=== PATIENT | female | born 1940 | race Two or more races ===

== ENCOUNTER 2016-07-14 19:08 | Inpatient (IN) | payer MEDICARE, OTHER ==
[~2016-07-14] VITALS: Ht 157.5 cm; Wt 58.5 kg
[2016-07-14 19:49] LABS: BASOPHILS # (AUTO) 0.2 /CMM (0.0-0.2); DIFF TOTAL % 100 %; EOSINOPHILS # (AUTO) 0.2 /CMM (0.0-0.7); EOSINOPHILS % (AUTO) 2.4 % (0.0-6.0); HEMATOCRIT 30 % (33-45); HEMOGLOBIN 10.1 g/dL (11.5-14.8); LYMPHOCYTES # (AUTO) 2.1 /CMM (0.8-4.8); LYMPHOCYTES % (AUTO) 22.8 % (20.0-44.0); MEAN CORPUSCULAR HEMOGLOBIN 30 PG (26.0-33.0); MEAN CORPUSCULAR HGB CONC 34 g/dl (31.0-36.0); MEAN CORPUSCULAR VOLUME 87 fL (82-100); MONOCYTES # (AUTO) 0.8 /CMM (0.1-1.30); MONOCYTES % (AUTO) 8.4 % (2.0-12.0); NEUTROPHILS # (AUTO) 5.8 /CMM (1.8-8.9); NEUTROPHILS % (AUTO) 64.4 % (43.0-81.0); PLATELET COUNT (AUTO) 255 /CMM (150-450); WHITE BLOOD COUNT (AUTO) 9.1 K/uL (4.3-11.0)
[2016-07-14 19:57] LABS: CALCIUM, SERUM 7.8 mg/dL (8.5-10.1); CREATININE 1.6 mg/dL (0.6-1.3); POTASSIUM 3.8 mmol/L (3.5-5.1)
[2016-07-14] MEDS ORDERED: IV NS 0.9% 500 ML BAG IV ONE (20:00)
[2016-07-14 20:01] LABS: INR 1.27 (0.87-1.13); PROTHROMBIN TIME 13.3 SECS (9.5-12.7)
[2016-07-14] MEDS ORDERED: IV SET PRIMARY 1 EA INFUS.SET MC ONE (20:07)
[2016-07-14] MEDS ORDERED: IV NS 0.9% 500 ML IV ONE (20:07)
[2016-07-14 21:25] VITALS: BP 143/66
[2016-07-14 22:45] VITALS: BP 143/66
[2016-07-15] MEDS ORDERED: ZINC220C6 PO (00:39)
[2016-07-15] MEDS ORDERED: LIDO30AD10 TP (00:39)
[2016-07-15] MEDS ORDERED: CALC-911 PO (00:39)
[2016-07-15] MEDS ORDERED: METO50TA7 PO (00:39)
[2016-07-15] MEDS ORDERED: DOCU-170 PO (00:39)
[2016-07-15] MEDS ORDERED: DULO20CA PO (00:39)
[2016-07-15] MEDS ORDERED: GLIP10TA11 PO (00:39)
[2016-07-15] MEDS ORDERED: NIFE60TA2 PO (00:39)
[2016-07-15] MEDS ORDERED: APIX5TAB PO (00:39)
[2016-07-15] MEDS ORDERED: MAG355OR18 PO (00:39)
[2016-07-15] MEDS ORDERED: CARV12.52 PO (00:39)
[2016-07-15] MEDS ORDERED: ONDA4TAB8 PO (00:39)
[2016-07-15] MEDS ORDERED: HYDR-3326 PO (00:39)
[2016-07-15] MEDS ORDERED: ALPR0.5T PO (00:39)
[2016-07-15] MEDS ORDERED: VIT D (00:39)
[2016-07-15] MEDS ORDERED: MINE120C3 TP (00:39)
[2016-07-15] MEDS ORDERED: ASCO120G2 MC (00:39)
[2016-07-15] MEDS ORDERED: MIRT15TA3 PO (00:39)
[2016-07-15] MEDS ORDERED: *INS HUMA SQ (00:39)
[2016-07-15] MEDS ORDERED: ATOR80TA PO (00:39)
[2016-07-15] MEDS ORDERED: FURO-145 PO (00:39)
[2016-07-15] MEDS ORDERED: [UNRECOGNIZED DRUG - CODE] IV (00:39)
[2016-07-15] MEDS ORDERED: DIPH-530 PO (00:39)
[2016-07-15] MEDS ORDERED: IPRA0.2S49 NEB (00:39)
[2016-07-15] MEDS ORDERED: OXYC15TA82 PO (00:39)
[2016-07-15] MEDS ORDERED: FLUC100T PO (00:39)
[2016-07-15] MEDS ORDERED: MULT-1168 PO (00:39)
[2016-07-15] MEDS ORDERED: PANT40SU PO (00:39)
[2016-07-15] MEDS ORDERED: PROT946L PO (00:39)
[2016-07-15] MEDS ORDERED: BISA5TAB19 PO (00:39)
[2016-07-15] MEDS ORDERED: FLUC200P12 PO (00:39)
[2016-07-15 06:37] LABS: BASOPHILS % (AUTO) 0.4 % (0.0-2.0); DIFF TOTAL % 100 %; EOSINOPHILS # (AUTO) 0.2 /CMM (0.0-0.7); EOSINOPHILS % (AUTO) 2.3 % (0.0-6.0); HEMATOCRIT 27 % (33-45); HEMOGLOBIN 9.1 g/dL (11.5-14.8); LYMPHOCYTES # (AUTO) 1.8 /CMM (0.8-4.8); MEAN CORPUSCULAR HEMOGLOBIN 30 PG (26.0-33.0); MEAN CORPUSCULAR HGB CONC 34 g/dl (31.0-36.0); MEAN CORPUSCULAR VOLUME 89 fL (82-100); MONOCYTES # (AUTO) 0.7 /CMM (0.1-1.30); MONOCYTES % (AUTO) 8.3 % (2.0-12.0); NEUTROPHILS # (AUTO) 5.3 /CMM (1.8-8.9); PLATELET COUNT (AUTO) 234 /CMM (150-450); RED BLOOD CELL COUNT(AUTO) 3.05 MIL/uL (4.0-5.2)
[2016-07-15 07:02] LABS: INR 1.16 (0.87-1.13); PROTHROMBIN TIME 12.5 SECS (9.5-12.7)
[2016-07-15 07:10] LABS: ALBUMIN 1.9 g/dL (3.4-5.0); BILIRUBIN,TOTAL 0.4 mg/dL (0.2-1.0); CALCIUM, SERUM 7.9 mg/dL (8.5-10.1); CREATININE 1.5 mg/dL (0.6-1.3); POTASSIUM 3.5 mmol/L (3.5-5.1); TOTAL PROTEIN, SERUM 6.9 g/dL (6.4-8.2)
[2016-07-15 07:30] VITALS: BP 137/73
[2016-07-15] MEDS ORDERED: DEXTROSE 50%-WATER 50 ML DISP.SYRIN IV PRN (09:30)
[2016-07-15] MEDS ORDERED: DIPHENHYDRAMINE HCL 12.5 MG/5 ML UDC PO PRN (09:30)
[2016-07-15] MEDS ORDERED: CEFTAZIDIME 1 G VIAL IV SCH (09:30)
[2016-07-15] MEDS ORDERED: ACETAMINOPHEN 650 MG/20.3 ML UDC NG PRN (09:30)
[2016-07-15] MEDS ORDERED: ONDANSETRON HCL/PF 4 MG/2 ML VIAL IV PRN (09:30)
[2016-07-15] MEDS ORDERED: MINERAL OIL/PETROLATUM,WHITE 120 GM JAR TP PRN (09:30)
[2016-07-15] MEDS ORDERED: BISACODYL (5 MG) 5 MG TABLET.DR PO PRN (09:30)
[2016-07-15] MEDS ORDERED: APIXABAN 5 MG TABLET PO PRN (09:30)
[2016-07-15] MEDS ORDERED: MORPHINE SULFATE INJ 2 MG/ML DISP.SYRIN IV PRN (09:30)
[2016-07-15 10:00] VITALS: BP 137/73
[2016-07-15] MEDS ORDERED: diphenhydrAMINE HCL 25 MG CAPSULE PO PRN (10:00)
[2016-07-15] MEDS ORDERED: ALPRAZOLAM 0.5 MG TABLET PO PRN (11:00)
[2016-07-15] MEDS ORDERED: Z GUARD REMEDY 2 OZ OINT TP PRN (11:00)
[2016-07-15] MEDS ORDERED: HYDROGEL DRESSING 90 GM TUBE TP PRN (11:00)
[2016-07-15] MEDS ORDERED: ALPRAZOLAM 0.5 MG TABLET PO SCH (13:00)
[2016-07-15] MEDS: BLOOD SUGAR DIAGNOSTIC 1 EACH STRIP IN SCH ×3 (13:11→22:50)
[2016-07-15] MEDS: CALCIUM CARBONATE 500 MG TAB.CHEW PO SCH (13:17)
[2016-07-15] MEDS: MULTIPLE VIT/MINERALS 1 EA TABLET PO SCH (13:17)
[2016-07-15] MEDS: DOCUSATE SODIUM 100 MG CAPSULE PO SCH ×2 (13:17→17:27)
[2016-07-15] MEDS: FUROSEMIDE 20 MG TABLET PO SCH (13:18)
[2016-07-15] MEDS: glipiZIDE 5 MG TABLET PO SCH ×2 (13:18→17:27)
[2016-07-15] MEDS: ASCORBIC ACID 500 MG TABLET PO SCH ×2 (13:18→17:27)
[2016-07-15] MEDS: FLUCONAZOLE (100 MG) 100 MG TABLET PO SCH (13:18)
[2016-07-15] MEDS: PANTOPRAZOLE 40 MG/PACK PACK PO SCH ×2 (13:18→17:28)
[2016-07-15] MEDS: DULOXETINE HCL 20 MG CAPSULE.DR PO SCH (13:19)
[2016-07-15] MEDS: APIXABAN 5 MG TABLET PO SCH ×2 (13:22→20:59)
[2016-07-15] MEDS: LIDOCAINE 5% (PATCH) 1 EA PATCH TP SCH (13:22)
[2016-07-15] MEDS: NIFEdipine XL 60 MG TAB PO SCH (13:22)
[2016-07-15] MEDS ORDERED: IV SET PRIMARY PUMP SET 1 EA INFUS.SET MC ONE ×2 (13:22→13:33)
[2016-07-15] MEDS: CARVEDILOL 12.5 MG TABLET PO SCH ×2 (13:23→17:00)
[2016-07-15] MEDS: CEFTAZIDIME 2 G in IV D5W 50 ML IV SCH ×2 (13:30→23:21)
[2016-07-15] MEDS ORDERED: HYDROGEL DRESSING 90 GM TUBE TP SCH (13:30)
[2016-07-15] MEDS: HYDROGEL DRESSING 90 GM TUBE TP SCH (13:48)
[2016-07-15 16:00] VITALS: BP 109/69
[2016-07-15 20:00] VITALS: BP 107/60
[2016-07-15] MEDS: ATORVASTATIN 40 MG TABLET PO SCH (20:59)
[2016-07-15] MEDS: MIRTAZAPINE SOLUTAB 15 MG/UDTABLET TAB.RAPDIS PO SCH (21:08)
[2016-07-15] MEDS: INSULIN REGULAR, HUMAN 100 UNIT/ML 3 ML VIAL SQ PRN (22:51)
[2016-07-16] MEDS: IPRATROPIUM NEB FS 0.5 MG/2.5 ML AMPUL.NEB NEB SCH ×5 (00:13→20:24)
[2016-07-16] MEDS: BLOOD SUGAR DIAGNOSTIC 1 EACH STRIP IN SCH ×4 (07:01→21:39)
[2016-07-16 07:02] LABS: BASOPHILS % (AUTO) 0.5 % (0.0-2.0); EOSINOPHILS # (AUTO) 0.2 /CMM (0.0-0.7); EOSINOPHILS % (AUTO) 3.2 % (0.0-6.0); HEMATOCRIT 25 % (33-45); HEMOGLOBIN 8.3 g/dL (11.5-14.8); LYMPHOCYTES # (AUTO) 1.6 /CMM (0.8-4.8); LYMPHOCYTES % (AUTO) 26.2 % (20.0-44.0); MEAN CORPUSCULAR HEMOGLOBIN 30 PG (26.0-33.0); MEAN CORPUSCULAR HGB CONC 33 g/dl (31.0-36.0); MEAN CORPUSCULAR VOLUME 89 fL (82-100); MONOCYTES # (AUTO) 0.5 /CMM (0.1-1.30); MONOCYTES % (AUTO) 8.6 % (2.0-12.0); NEUTROPHILS # (AUTO) 3.7 /CMM (1.8-8.9); NEUTROPHILS % (AUTO) 61.5 % (43.0-81.0); PLATELET COUNT (AUTO) 232 /CMM (150-450); RED BLOOD CELL COUNT(AUTO) 2.81 MIL/uL (4.0-5.2)
[2016-07-16 07:26] LABS: CREATININE 1.3 mg/dL (0.6-1.3); PHOSPHORUS 3.9 mg/dL (2.5-4.9); POTASSIUM 3.6 mmol/L (3.5-5.1)
[2016-07-16] MEDS: CALCIUM CARBONATE 500 MG TAB.CHEW PO SCH (08:40)
[2016-07-16] MEDS: DULOXETINE HCL 20 MG CAPSULE.DR PO SCH (08:40)
[2016-07-16] MEDS: ASPIRIN EC 81 MG TABLET.DR PO SCH (08:41)
[2016-07-16] MEDS: CARVEDILOL 12.5 MG TABLET PO SCH ×2 (08:41→17:00)
[2016-07-16] MEDS: FLUCONAZOLE (100 MG) 100 MG TABLET PO SCH (08:42)
[2016-07-16] MEDS: FUROSEMIDE 20 MG TABLET PO SCH (08:42)
[2016-07-16] MEDS: MULTIPLE VIT/MINERALS 1 EA TABLET PO SCH (08:42)
[2016-07-16] MEDS: METOPROLOL SUCCINATE 50 MG TAB.SR.24H PO SCH (08:43)
[2016-07-16] MEDS: ASCORBIC ACID 500 MG TABLET PO SCH ×2 (08:43→16:56)
[2016-07-16] MEDS: NIFEdipine XL 60 MG TAB PO SCH (08:45)
[2016-07-16] MEDS: APIXABAN 5 MG TABLET PO SCH ×2 (08:45→17:00)
[2016-07-16] MEDS: glipiZIDE 5 MG TABLET PO SCH ×2 (08:47→17:00)
[2016-07-16] MEDS: PANTOPRAZOLE 40 MG/PACK PACK PO SCH ×2 (08:47→17:28)
[2016-07-16] MEDS: DOCUSATE SODIUM 100 MG CAPSULE PO SCH ×2 (08:48→16:56)
[2016-07-16] MEDS: NIFEdipine XL (30MG) 30 MG TAB PO SCH (09:00)
[2016-07-16] MEDS ORDERED: ASPIRIN 81 MG TAB.CHEW PO SCH (09:00)
[2016-07-16] MEDS: HYDROGEL DRESSING 90 GM TUBE TP SCH (09:15)
[2016-07-16] MEDS: LIDOCAINE 5% (PATCH) 1 EA PATCH TP SCH (09:30)
[2016-07-16] MEDS: HYDROCODONE/APAP 5/325MG 1 EACH TABLET PO PRN (16:56)
[2016-07-16] MEDS ORDERED: LACTOBACILLUS RHAMNOSUS GG 1 EACH CAP.SPRINK PO SCH (17:00)
[2016-07-16 20:00] VITALS: BP 105/52
[2016-07-16] MEDS: MIRTAZAPINE SOLUTAB 15 MG/UDTABLET TAB.RAPDIS PO SCH (21:39)
[2016-07-16] MEDS: ATORVASTATIN 40 MG TABLET PO SCH (21:39)
[2016-07-17] MEDS: BLOOD SUGAR DIAGNOSTIC 1 EACH STRIP IN SCH ×4 (06:47→21:13)
[2016-07-17 08:00] VITALS: BP 126/67
[2016-07-17] MEDS: METOPROLOL SUCCINATE 50 MG TAB.SR.24H PO SCH (08:10)
[2016-07-17] MEDS: MULTIPLE VIT/MINERALS 1 EA TABLET PO SCH (08:11)
[2016-07-17] MEDS: DULOXETINE HCL 20 MG CAPSULE.DR PO SCH (08:11)
[2016-07-17] MEDS: CARVEDILOL 12.5 MG TABLET PO SCH ×2 (08:11→17:00)
[2016-07-17] MEDS: ASPIRIN EC 81 MG TABLET.DR PO SCH (08:12)
[2016-07-17] MEDS: APIXABAN 5 MG TABLET PO SCH ×2 (08:13→16:40)
[2016-07-17] MEDS: FUROSEMIDE 20 MG TABLET PO SCH (08:13)
[2016-07-17] MEDS: CALCIUM CARBONATE 500 MG TAB.CHEW PO SCH (08:13)
[2016-07-17] MEDS: NIFEdipine XL (30MG) 30 MG TAB PO SCH (08:13)
[2016-07-17] MEDS: DOCUSATE SODIUM 100 MG CAPSULE PO SCH ×2 (08:13→16:41)
[2016-07-17] MEDS: ASCORBIC ACID 500 MG TABLET PO SCH ×2 (08:13→16:40)
[2016-07-17] MEDS: HYDROGEL DRESSING 90 GM TUBE TP SCH (08:16)
[2016-07-17] MEDS: PANTOPRAZOLE 40 MG/PACK PACK PO SCH ×2 (08:16→16:41)
[2016-07-17] MEDS: glipiZIDE 5 MG TABLET PO SCH ×2 (08:18→16:25)
[2016-07-17] MEDS: LIDOCAINE 5% (PATCH) 1 EA PATCH TP SCH (08:19)
[2016-07-17] MEDS: IPRATROPIUM NEB FS 0.5 MG/2.5 ML AMPUL.NEB NEB SCH ×4 (09:29→19:23)
[2016-07-17] MEDS ORDERED: IOHEXOL-300 100 ML VIAL IV ONE (15:28)
[2016-07-17] MEDS ORDERED: IV NS 0.9% 250 ML IV ONE (15:28)
[2016-07-17 16:00] VITALS: BP 99/48
[2016-07-17 20:00] VITALS: BP_SYST 113; BP_SYST 115; BP_DIAS 63; BP_DIAS 88
[2016-07-17 20:40] VITALS: BP 147/81
[2016-07-17] MEDS: MIRTAZAPINE SOLUTAB 15 MG/UDTABLET TAB.RAPDIS PO SCH (21:13)
[2016-07-17] MEDS: ATORVASTATIN 40 MG TABLET PO SCH (21:13)
[2016-07-17] MEDS: INSULIN REGULAR, HUMAN 100 UNIT/ML 3 ML VIAL SQ PRN (21:14)
[2016-07-18] MEDS: BLOOD SUGAR DIAGNOSTIC 1 EACH STRIP IN SCH ×4 (06:40→21:40)
[2016-07-18 08:00] VITALS: BP 137/67
[2016-07-18] MEDS: ASCORBIC ACID 500 MG TABLET PO SCH ×2 (08:18→16:41)
[2016-07-18] MEDS: MULTIPLE VIT/MINERALS 1 EA TABLET PO SCH (08:18)
[2016-07-18] MEDS: DOCUSATE SODIUM 100 MG CAPSULE PO SCH ×2 (08:19→16:42)
[2016-07-18] MEDS: FUROSEMIDE 20 MG TABLET PO SCH (08:19)
[2016-07-18] MEDS: CALCIUM CARBONATE 500 MG TAB.CHEW PO SCH (08:19)
[2016-07-18] MEDS: glipiZIDE 5 MG TABLET PO SCH ×2 (08:19→16:41)
[2016-07-18] MEDS: CARVEDILOL 12.5 MG TABLET PO SCH ×2 (08:20→16:42)
[2016-07-18] MEDS: DULOXETINE HCL 20 MG CAPSULE.DR PO SCH (08:20)
[2016-07-18] MEDS: ASPIRIN EC 81 MG TABLET.DR PO SCH (08:20)
[2016-07-18] MEDS: PANTOPRAZOLE 40 MG/PACK PACK PO SCH ×2 (08:20→16:41)
[2016-07-18] MEDS: NIFEdipine XL (30MG) 30 MG TAB PO SCH (08:21)
[2016-07-18] MEDS: METOPROLOL SUCCINATE 50 MG TAB.SR.24H PO SCH (08:21)
[2016-07-18] MEDS: HYDROGEL DRESSING 90 GM TUBE TP SCH (08:30)
[2016-07-18] MEDS: LIDOCAINE 5% (PATCH) 1 EA PATCH TP SCH (08:30)
[2016-07-18] MEDS: APIXABAN 5 MG TABLET PO SCH ×2 (08:36→16:42)
[2016-07-18] MEDS: IPRATROPIUM NEB FS 0.5 MG/2.5 ML AMPUL.NEB NEB SCH ×3 (09:15→19:45)
[2016-07-18] MEDS: HYDROCODONE/APAP 5/325MG 1 EACH TABLET PO PRN (11:39)
[2016-07-18 15:48] VITALS: BP 115/66
[2016-07-18 20:00] VITALS: BP 115/88
[2016-07-18] MEDS: ATORVASTATIN 40 MG TABLET PO SCH (21:39)
[2016-07-18] MEDS: MIRTAZAPINE SOLUTAB 15 MG/UDTABLET TAB.RAPDIS PO SCH (21:40)
[2016-07-19] MEDS: BLOOD SUGAR DIAGNOSTIC 1 EACH STRIP IN SCH ×2 (06:40→12:30)
[2016-07-19 06:55] LABS: BASOPHILS % (AUTO) 0.6 % (0.0-2.0); DIFF TOTAL % 100 %; EOSINOPHILS # (AUTO) 0.2 /CMM (0.0-0.7); EOSINOPHILS % (AUTO) 2.7 % (0.0-6.0); HEMATOCRIT 26 % (33-45); HEMOGLOBIN 8.5 g/dL (11.5-14.8); LYMPHOCYTES # (AUTO) 2.1 /CMM (0.8-4.8); LYMPHOCYTES % (AUTO) 28.8 % (20.0-44.0); MEAN CORPUSCULAR HEMOGLOBIN 29 PG (26.0-33.0); MEAN CORPUSCULAR HGB CONC 33 g/dl (31.0-36.0); MEAN CORPUSCULAR VOLUME 88 fL (82-100); MONOCYTES # (AUTO) 0.7 /CMM (0.1-1.30); MONOCYTES % (AUTO) 8.8 % (2.0-12.0); NEUTROPHILS # (AUTO) 4.4 /CMM (1.8-8.9); NEUTROPHILS % (AUTO) 59.1 % (43.0-81.0); PLATELET COUNT (AUTO) 332 /CMM (150-450); WHITE BLOOD COUNT (AUTO) 7.5 K/uL (4.3-11.0)
[2016-07-19 07:36] LABS: CALCIUM, SERUM 8.1 mg/dL (8.5-10.1); CREATININE 1.1 mg/dL (0.6-1.3); PHOSPHORUS 3.5 mg/dL (2.5-4.9); POTASSIUM 4.1 mmol/L (3.5-5.1)
[2016-07-19 08:00] VITALS: BP 150/73
[2016-07-19] MEDS: IPRATROPIUM NEB FS 0.5 MG/2.5 ML AMPUL.NEB NEB SCH ×2 (08:18→12:57)
[2016-07-19] MEDS: FUROSEMIDE 20 MG TABLET PO SCH (08:30)
[2016-07-19] MEDS: ASPIRIN EC 81 MG TABLET.DR PO SCH (08:30)
[2016-07-19] MEDS: CALCIUM CARBONATE 500 MG TAB.CHEW PO SCH (08:30)
[2016-07-19] MEDS: MULTIPLE VIT/MINERALS 1 EA TABLET PO SCH (08:30)
[2016-07-19] MEDS: METOPROLOL SUCCINATE 50 MG TAB.SR.24H PO SCH (08:31)
[2016-07-19] MEDS: DOCUSATE SODIUM 100 MG CAPSULE PO SCH (08:31)
[2016-07-19] MEDS: CARVEDILOL 12.5 MG TABLET PO SCH (08:32)
[2016-07-19] MEDS: glipiZIDE 5 MG TABLET PO SCH (08:32)
[2016-07-19] MEDS: ASCORBIC ACID 500 MG TABLET PO SCH (08:32)
[2016-07-19] MEDS: PANTOPRAZOLE 40 MG/PACK PACK PO SCH (08:33)
[2016-07-19] MEDS: DULOXETINE HCL 20 MG CAPSULE.DR PO SCH (08:33)
[2016-07-19] MEDS: NIFEdipine XL (30MG) 30 MG TAB PO SCH (08:33)
[2016-07-19] MEDS: HYDROGEL DRESSING 90 GM TUBE TP SCH (08:35)
[2016-07-19] MEDS: APIXABAN 5 MG TABLET PO SCH (08:35)
[2016-07-19] MEDS: LIDOCAINE 5% (PATCH) 1 EA PATCH TP SCH (08:35)
[2016-07-19] MEDS ORDERED: SECONDARY IV SET 1 EA INFUS.SET MC ONE (10:39)
[2016-07-19] MEDS ORDERED: IV NS 0.9% 250 ML IV ONE (10:42)
[2016-07-19] MEDS: Magnesium 1GM/D5W 100ML PREMIX 100 ML IV SCH ×2 (10:43→12:05)
[2016-07-19] MEDS ORDERED: IV SET PRIMARY PUMP SET 1 EA INFUS.SET MC ONE (10:43)
[2016-07-19] MEDS: INSULIN REGULAR, HUMAN 100 UNIT/ML 3 ML VIAL SQ PRN (12:32)
[2016-07-19 16:00] VITALS: BP 105/63
== END 2016-07-19 15:50 | DRG 604 ==
LOC: ER 19:10 → MEDSG2 21:16
PROVIDERS: ADMIT Internal Medicine; ATTEND Internal Medicine
DX: S71.101A Unspecified open wound, right thigh, initial encounter (principal); N17.0 Acute kidney failure with tubular necrosis; G93.40 Encephalopathy, unspecified; D68.9 Coagulation defect, unspecified; S21.109A Unspecified open wound of unspecified front wall of thorax without penetration into thoracic cavity, initial encounter; I13.0 Hypertensive heart and chronic kidney disease with heart failure and stage 1 through stage 4 chronic kidney disease, or unspecified chronic kidney disease; E11.22 Type 2 diabetes mellitus with diabetic chronic kidney disease; I25.10 Atherosclerotic heart disease of native coronary artery without angina pectoris; K21.9 Gastro-esophageal reflux disease without esophagitis; N18.9 Chronic kidney disease, unspecified; Z95.1 Presence of aortocoronary bypass graft; E88.09 Other disorders of plasma-protein metabolism, not elsewhere classified; L90.5 Scar conditions and fibrosis of skin; S80.812A Abrasion, left lower leg, initial encounter; S80.811A Abrasion, right lower leg, initial encounter; X58.XXXA Exposure to other specified factors, initial encounter; Y93.9 Activity, unspecified; Y92.89 Other specified places as the place of occurrence of the external cause; Y99.9 Unspecified external cause status; F29 Unspecified psychosis not due to a substance or known physiological condition; Y83.2 Surgical operation with anastomosis, bypass or graft as the cause of abnormal reaction of the patient, or of later complication, without mention of misadventure at the time of the procedure; Y82.9 Unspecified medical devices associated with adverse incidents; Z79.01 Long term (current) use of anticoagulants; I50.9 Heart failure, unspecified; R19.00 Intra-abdominal and pelvic swelling, mass and lump, unspecified site; I87.2 Venous insufficiency (chronic) (peripheral); D63.8 Anemia in other chronic diseases classified elsewhere; L89.819 Pressure ulcer of head, unspecified stage
CPT/HCPCS: 36415; 80048-TC; 80053-TC; 82962-TC; 83735-TC; 84100-TC; 85025-TC; 85610-TC; 85730-TC; 86850-TC; 86901; 87081-TC; 93925-TC; 94799-TC; A4606; A6248; A6253; A6402; A6403; J0713; J1815; J3475; J7040; J7050; J7060; Q0163; Q9967; Z7610

== ENCOUNTER 2017-12-25 11:40 | Inpatient (IN) | payer MEDICARE, OTHER ==
[~2017-12-25] VITALS: Ht 315 cm; Wt 51.7 kg
[~2017-12-25 11:40] MED LIST: ALPR0.5T PO; APIX5TAB PO; ASCO120G2 MC; ATOR80TA PO; BISA5TAB19 PO; CALC-494 PO; CARV12.52 PO; DIPH-530 PO; DOCU100C36 PO; DULO20CA PO; FLUC100T PO; FURO-145 PO; GLIP10TA11 PO; HYDR-3974 PO; IPRA0.2S49 NEB; LIDO30AD10 TP; METO50TA7 PO; MINE120C3 TP; MIRT15TA3 PO; MULT-1168 PO; NIFE60TA2 PO; PANT40SU PO
--- NOTE | 2017-12-25 11:44 | NUR ---
SOY [facility]. PATIENT RECEIVED 2 HRS 40 MIN OF 3HRS OF DIALYSIS WELDING MACHINE OPERATOR SUBMERGED ARC. A/OX 3, BREATHING EVEN AND UNLABORED. NO SOB, NAD, VITALS STABLE. SAFETY AND COMFORT MEASURES IN PLACE. AWAITING MD ORDERS.
--- NOTE | 2017-12-25 11:50 | NUR ---
MD AT BEDSIDE FOR HD CATH EVALUATION. CATHETER WAS MOSTLY PULLED OUT. MD REMOVED CATHETER ENTIRELY AND SITE SECURED. NO BLEEDING NOTED.
--- NOTE | 2017-12-25 11:55 | NUR ---
NEW IV STARTED ON LFA, 20G. BLOOD DRAWN AND SENT TO LAB.
[2017-12-25 12:03] LABS: BASOPHILS % (AUTO) 0.4 % (0.0-2.0); EOSINOPHILS % (AUTO) 0.6 % (0.0-6.0); HEMATOCRIT 40 % (33-45); HEMOGLOBIN 13.4 g/dL (11.5-14.8); LYMPHOCYTES # (AUTO) 1.9 /CMM (0.8-4.8); LYMPHOCYTES % (AUTO) 20.1 % (20.0-44.0); MEAN CORPUSCULAR HEMOGLOBIN 32 PG (26.0-33.0); MEAN CORPUSCULAR HGB CONC 33 g/dl (31.0-36.0); MEAN CORPUSCULAR VOLUME 97 fL (82-100); MONOCYTES # (AUTO) 0.6 /CMM (0.1-1.30); NEUTROPHILS # (AUTO) 6.6 /CMM (1.8-8.9); NEUTROPHILS % (AUTO) 72.9 % (43.0-81.0); PLATELET COUNT (AUTO) 217 /CMM (150-450); RDW COEFFICIENT OF VARIATION 13.6 (11.5-15.0); RED BLOOD CELL COUNT(AUTO) 4.15 MIL/uL (4.0-5.2); WHITE BLOOD COUNT (AUTO) 9.2 K/uL (4.3-11.0)
[2017-12-25 12:11] LABS: CALCIUM, SERUM 9.1 mg/dL (8.5-10.1); CARBON DIOXIDE 24 mmol/L (21-32); CHLORIDE 101 mmol/L (98-107); CREATININE 1.5 mg/dL (0.6-1.3); GLUCOSE 140 mg/dL (74-106); POTASSIUM 4.1 mmol/L (3.5-5.1); SODIUM SERUM 134 mmol/L (136-145); UREA NITROGEN, BLOOD 36 mg/dL (7-18)
[2017-12-25 12:15] LABS: INR 0.91 (0.85-1.15)
--- NOTE | 2017-12-25 12:40 | NUR ---
DR.LEE MONTALVO
[2017-12-25] MEDS ORDERED: HYDR-552 PO (12:48)
[2017-12-25] MEDS ORDERED: ISOS60TA4 PO (12:48)
[2017-12-25] MEDS ORDERED: ACID1TAB12 PO (12:48)
[2017-12-25] MEDS ORDERED: METO2.5T2 PO (12:48)
[2017-12-25] MEDS ORDERED: CHOL200026 PO (12:48)
[2017-12-25] MEDS ORDERED: HYDR-4076 PO (12:48)
[2017-12-25] MEDS ORDERED: IPRA0.2S9 IH (12:48)
[2017-12-25] MEDS ORDERED: AMIN30LI4 PO (12:48)
[2017-12-25] MEDS ORDERED: INSU100V11 SQ (12:48)
[2017-12-25] MEDS ORDERED: ATOR10TA PO (12:48)
[2017-12-25] MEDS ORDERED: FOLI0.8T23 PO (12:48)
[2017-12-25] MEDS ORDERED: ASCO250T7 PO (12:48)
[2017-12-25] MEDS ORDERED: BLOO-668 IN (12:48)
[2017-12-25] MEDS ORDERED: NITR0.4T48 SL (12:48)
[2017-12-25] MEDS ORDERED: ASPI-1169 PO (12:48)
[2017-12-25] MEDS ORDERED: BENA20TA2 PO (12:48)
[2017-12-25] MEDS ORDERED: HEPA50008 SQ (12:48)
[2017-12-25] MEDS ORDERED: CARV6.252 PO (12:48)
--- NOTE | 2017-12-25 13:07 | NUR ---
MS 116-1 FOR DIALYSIS CATH. MALFUNCTION, DR.SORA HENRY ADMITTING
--- NOTE | 2017-12-25 13:11 | NUR ---
REPORT GIVEN TO DEONDRE FORMAN FOR MARBIN UPON ADMISSION.
--- NOTE | 2017-12-25 13:20 | NUR ---
PATIENT TRANSPORTED TO [facility] VIA STRETCHER. RNDEONDRE TO PROVIDE MARBIN.
--- NOTE | 2017-12-25 13:30 | NUR ---
RN M/S INITIAL NOTES: RECEIVED PT FROM ER C/C HD CATHETER DISLODGEMENT. HD CATHETER REMOVED IN ER, DRESSING IN PLACE, NO BLEEDING NOTED. SAFELY TRANSFERRED FROM [facility] TO BED. PT DENIES ANY PAIN OR DISCOMFORT AT THIS TIME. ON ROOM AIR, NO SOB OR RESPIRATORY DISTRESS NOTED. SKIN ASSESSMENT DONE. SKIN INTACT BUT NOTED WITH MULTIPLE OLD BURN SITES. ORDERS RECEIVED PER DR MILTON HENRY, CARRIED OUT. LUNCH TRAY ORDERED FROM [facility], [facility] 60GM RENAL DIET. PT ASSISTED TO THE RESTROOM WITHOUT COMPLICATIONS. NO BM NOTED. PLAN OF CARE DISCUSSED WITH PT, BED IN LOW LOCKED POSITION, CALL LIGHT WITHIN REACH. FAMILY AWARE OF PT'S LOCATION AND SITUATION, WILL VISIT LATER. WILL CONTINUE TO MONITOR PT.
--- NOTE | 2017-12-25 13:45 | NUR ---
V/S UPON ADMISSION: 98.0, 72 (HR), RR 19, O2 SATURATION 99%, BP 141/76, PAIN 0/10
[2017-12-25] MEDS ORDERED: INSULIN ASPART/LISPRO 100 UNIT/ML CARTRIDGE SQ PRN (14:30)
[2017-12-25] MEDS ORDERED: CALCIUM CARBONATE 500 MG TAB.CHEW PO PRN (14:30)
[2017-12-25] MEDS ORDERED: IPRATROPIUM NEB FS 0.5 MG/2.5 ML AMPUL.NEB IH PRN (14:30)
[2017-12-25] MEDS ORDERED: HYDROCODONE/APAP 5/325MG 1 EACH TABLET PO PRN (14:30)
[2017-12-25] MEDS ORDERED: NITROGLYCERIN 0.4 MG/TAB BOTTLE SL PRN (14:30)
[2017-12-25] MEDS ORDERED: DEXTROSE 50%-WATER 50 ML DISP.SYRIN IV PRN (14:30)
[2017-12-25] MEDS ORDERED: BISACODYL (5 MG) 5 MG TABLET.DR PO PRN (14:30)
--- NOTE | 2017-12-25 15:30 | NUR ---
RN M/S NOTES: RECEIVED CALL FROM DR ERVIN WITH ORDERS FOR HD TUNNELED CATHETER PLACEMENT TO BE DONE TOMORROW MORNING AT 0900. NPO AFTER MIDNIGHT TONIGHT, CONSENTS FOR CATHETER PLACEMENT, AND AM LABS (CBC, BPM, PT/PTT). ORDERS CARRIED OUT. WILL HAVE FAMILY SIGN CONSENTS UPON ARRIVAL. PT AWARE.
--- NOTE | 2017-12-25 16:00 | NUR ---
RN M/S NOTES: FAMILY AT BEDSIDE, DAUGHTER AND HER . EDUCATED ABOUT TUNNELING HD CATHETER INSERTION TOMORROW, CONSENT RECEIVED FROM THEM BOTH. FORMS SIGNED AND PLACED IN CHART. PT AWARE.
[2017-12-25] MEDS: DOCUSATE SODIUM 100 MG CAPSULE PO SCH (16:44)
[2017-12-25] MEDS: ACIDOPHILUS/BULGARICUS 1 EACH TAB.CHEW PO SCH (16:44)
[2017-12-25] MEDS: PROSOURCE / PROSTAT (PYXIS) 30 ML UDC PO SCH (16:45)
[2017-12-25] MEDS: CARVEDILOL 6.25 MG TABLET PO SCH (16:45)
[2017-12-25] MEDS: BLOOD SUGAR DIAGNOSTIC 1 EACH STRIP IN SCH ×2 (17:05→21:44)
[2017-12-25] MEDS ORDERED: BLOOD SUGAR DIAGNOSTIC 1 EACH STRIP IN SCH (17:30)
--- NOTE | 2017-12-25 18:30 | NUR ---
RN M/S END NOTES: PT IN BED SLEEPING, EASY TO AROUSE. ON ROOM AIR, SATURATING WELL WITH NO C/O SOB AT THIS TIME. PT DENIES PAIN OR DISCOMFORT. AWARE OF PLAN FOR HD CATHETER PLACEMENT AND NPO AFTER MIDNIGHT. ALL DUE MEDS GIVEN PO WITHOUT ANY COMPLICATION, LUNCH AND DINNER CONSUMED. BED IN LOW LOCKED POSITION, CALL LIGHT WITHIN REACH, BED ALARM ON FOR SAFETY. WILL ENDORSE TO PM SHIFT FOR CONTINUITY OF CARE.
--- NOTE | 2017-12-25 20:10 | NUR ---
RN NOTES RECEIVED PATIENT AWAKE IN BED WATCHING TV WITH NO RESPIRATORY DISTRESS OR SHORTNESS OF BREATH. BREATHING EVEN AND UNLABORED. ROOM AIR WELL TOLERATED. ALERT AND ORIENTED X 4. NO COMPLAINT OF PAIN OF THIS TIME. AMBULATORY. ABLE TO COMMUNICATE NEEDS. KEPT CLEAN AND DRY. WILL CONTINUE TO MONITOR.
[2017-12-25] MEDS: HEPARIN SODIUM, PORCINE 5000 UNITS/1 ML VIAL SQ SCH (21:39)
[2017-12-25] MEDS: hydrALAZINE HCL 25 MG TABLET PO SCH (21:43)
[2017-12-25] MEDS: INSULIN ASPART/LISPRO 100 UNIT/ML CARTRIDGE SQ PRN (21:44)
[2017-12-25] MEDS ORDERED: ATORVASTATIN 10 MG TABLET PO SCH (22:00)
[2017-12-25 22:42] VITALS: BP 125/63
[2017-12-26 04:00] VITALS: BP 143/70
[2017-12-26] MEDS: hydrALAZINE HCL 25 MG TABLET PO SCH ×2 (05:00→12:38)
[2017-12-26 06:34] LABS: BASOPHILS % (AUTO) 0.5 % (0.0-2.0); EOSINOPHILS % (AUTO) 1.2 % (0.0-6.0); HEMATOCRIT 37 % (33-45); HEMOGLOBIN 11.9 g/dL (11.5-14.8); LYMPHOCYTES # (AUTO) 2.1 /CMM (0.8-4.8); LYMPHOCYTES % (AUTO) 33.8 % (20.0-44.0); MEAN CORPUSCULAR HEMOGLOBIN 32 PG (26.0-33.0); MEAN CORPUSCULAR HGB CONC 32 g/dl (31.0-36.0); MEAN CORPUSCULAR VOLUME 99 fL (82-100); MONOCYTES # (AUTO) 0.4 /CMM (0.1-1.30); MONOCYTES % (AUTO) 7.3 % (2.0-12.0); NEUTROPHILS # (AUTO) 3.5 /CMM (1.8-8.9); NEUTROPHILS % (AUTO) 57.2 % (43.0-81.0); PLATELET COUNT (AUTO) 189 /CMM (150-450); RED BLOOD CELL COUNT(AUTO) 3.76 MIL/uL (4.0-5.2); WHITE BLOOD COUNT (AUTO) 6.1 K/uL (4.3-11.0)
[2017-12-26 06:49] LABS: CALCIUM, SERUM 8.8 mg/dL (8.5-10.1); CARBON DIOXIDE 22 mmol/L (21-32); CHLORIDE 101 mmol/L (98-107); GLUCOSE 116 mg/dL (74-106); POTASSIUM 4.4 mmol/L (3.5-5.1); SODIUM SERUM 135 mmol/L (136-145); UREA NITROGEN, BLOOD 64 mg/dL (7-18)
--- NOTE | 2017-12-26 06:51 | NUR ---
RN NOTES NO SIGNIFICANT CHANGE OF CONDITION. IN BED SLEEPING COMFORTABLY. NO DISTRESS OR SHORTNESS OF BREATH. BREATHING EVEN AND UNLABORED. NO PHYSICAL MANIFESTATION OF PAIN OR DISCOMFORT. VITAL SIGNS WNL. NPO MIDNIGHT. FOR INSERTION OF TUNNELLED HD CATHETER. WILL ENDORSE TO AM SHIFT FOR CONTINUITY OF CARE
[2017-12-26] MEDS: BLOOD SUGAR DIAGNOSTIC 1 EACH STRIP IN SCH ×2 (07:00→11:51)
[2017-12-26] MEDS: INSULIN ASPART/LISPRO 100 UNIT/ML CARTRIDGE SQ PRN (07:00)
[2017-12-26 07:09] LABS: INR 0.93 (0.87-1.13)
[2017-12-26] MEDS ORDERED: PANTOPRAZOLE 40 MG/PACK PACK PO SCH (07:30)
--- NOTE | 2017-12-26 07:34 | NUR ---
MS RN NOTES: RECEIVED PT ON BED ALERT AND AWAKE, VERBALLY RESPONSIVE. NO ACUTE DISTRESS NOTED. NO COMPLAINTS OF PAIN OR DISCOMFORT AT THIS TIME. IV ON LFA G20 INTACT AND PATENT. PRE OP CHECK LIST DONE. KEPT CLEAN, DRY AND COMFORTABLE. SAFETY AND FALL PRECAUTIONS OBSERVED AND MAINTAINED. CALL LIGHT WITHIN REACH. WILL CONTINUE TO MONITOR PT.
[2017-12-26 08:00] VITALS: BP 158/71
[2017-12-26] MEDS ORDERED: HEPARIN SODIUM, PORCINE 1,000 UNIT/ML VIAL ONE (08:14)
[2017-12-26] MEDS ORDERED: IOHEXOL 0 ML IV ONE (08:14)
[2017-12-26] MEDS ORDERED: LIDOCAINE 2% 50 ML MDV IJ ONE (08:14)
[2017-12-26] MEDS ORDERED: ANESTHESIA TRAY IN PYXIS 1 EA TRAY MC ONE (08:15)
--- NOTE | 2017-12-26 08:45 | NUR ---
MS RN NOTES: PT WAS TRANSPORTED TO OR FOR SURGERY. IN STABLE CONDITION. NO ACUTE DISTRESS NOTED. NO SOB. DENIES PAIN.
[2017-12-26] MEDS ORDERED: FENTANYL PF 100MCG/2ML AMPUL ONE (08:58)
[2017-12-26] MEDS: DOCUSATE SODIUM 100 MG CAPSULE PO SCH (09:00)
[2017-12-26] MEDS ORDERED: ISOSORBIDE MONONITRATE 20 MG TABLET PO SCH (09:00)
[2017-12-26] MEDS ORDERED: BENAZEPRIL HCL 20 MG TABLET PO SCH (09:00)
[2017-12-26] MEDS: ACIDOPHILUS/BULGARICUS 1 EACH TAB.CHEW PO SCH ×2 (09:00→12:37)
[2017-12-26] MEDS: CARVEDILOL 6.25 MG TABLET PO SCH (09:00)
[2017-12-26] MEDS ORDERED: ASCORBIC ACID 500 MG TABLET PO SCH (09:00)
[2017-12-26] MEDS ORDERED: METOLAZONE 2.5 MG TABLET PO SCH (09:00)
[2017-12-26] MEDS ORDERED: VIT B CMPLX 3/FA/VIT C/BIOTIN 1 TAB TABLET PO SCH (09:00)
[2017-12-26] MEDS ORDERED: ASPIRIN 81 MG TAB.CHEW PO SCH (09:00)
[2017-12-26] MEDS ORDERED: CHOLECALCIFEROL 1,000 UNIT TABLET (VIT D3) PO SCH (09:00)
[2017-12-26] MEDS: PROSOURCE / PROSTAT (PYXIS) 30 ML UDC PO SCH ×2 (09:00→12:40)
[2017-12-26] MEDS: HEPARIN SODIUM, PORCINE 5000 UNITS/1 ML VIAL SQ SCH (09:00)
[2017-12-26] MEDS ORDERED: HYDROCODONE/APAP 5/325MG 1 EACH TABLET PO SCH (09:00)
--- NOTE | 2017-12-26 10:16 | NUR ---
MS RN NOTES: PATIENT CAME BACK FROM SURGERY. VITAL SIGNS BP: 156/70, HR 61, TEMP 97.6, RR 20, O2 SAT 98% RA. NO ACUTE DISTRESS NOTED. DENIES PAIN AT THIS TIME. NO SOB. IV ON RIGHT HAND G22 INTACT AND PATENT. NEW ORDERS CARRIED OUT AND DONE. SAFETY ADN FALL PRECAUTIONS OBSERVED AND MAINTAINED. WILL CONTINUE TO MONITOR PT.
[2017-12-26 12:00] VITALS: BP 156/70
[2017-12-26 12:38] VITALS: BP 156/70
--- NOTE | 2017-12-26 15:39 | NUR ---
MS RN NOTES: PATIENT WAS DISCHARGED HOME, PICKED UP BY HER SON. IN STABLE CONDITION. NO ACUTE DISTRESS NOTED. NO COMPLAINTS OF PAIN OR DISCOMFORT. IV ON RIGHT HAND WAS REMOVED. PICTURES TAKEN AND PLACED ON CHART. DISCHARGE INSTRUCTIONS AND HEALTH EDUCATION PROVIDED. BELONGINGS LIST DONE.
== END 2017-12-26 15:10 | disposition home or self-care (01) | DRG 314 ==
LOC: ER 11:41 → MEDSG1 13:24
PROVIDERS: ADMIT Internal Medicine; ATTEND Internal Medicine
PROC: B513ZZA Fluoroscopy of Right Jugular Veins, Guidance (ICD-10-PCS; 2017-12-26)
PROC: 05HM33Z Insertion of Infusion Device into Right Internal Jugular Vein, Percutaneous Approach (ICD-10-PCS; principal; 2017-12-26 09:00)
DX: T82.41XA Breakdown (mechanical) of vascular dialysis catheter, initial encounter (principal); N18.6 End stage renal disease; G93.40 Encephalopathy, unspecified; I12.0 Hypertensive chronic kidney disease with stage 5 chronic kidney disease or end stage renal disease; Y83.9 Surgical procedure, unspecified as the cause of abnormal reaction of the patient, or of later complication, without mention of misadventure at the time of the procedure; Y92.89 Other specified places as the place of occurrence of the external cause; I25.10 Atherosclerotic heart disease of native coronary artery without angina pectoris; Z95.1 Presence of aortocoronary bypass graft; Z99.2 Dependence on renal dialysis; E11.22 Type 2 diabetes mellitus with diabetic chronic kidney disease; E78.5 Hyperlipidemia, unspecified; D63.8 Anemia in other chronic diseases classified elsewhere
CPT/HCPCS: 36415; 71045-TC; 80048-TC; 82962-TC; 85025-TC; 85730-TC; 87081-TC; 90935-TC; A4606; J1644; J1815; J3010; J3490; Q9967; Z7610

== ENCOUNTER 2020-01-25 09:18 | Inpatient (IN) | payer MEDICARE, OTHER ==
[~2020-01-25] VITALS: Ht 154.9 cm; Wt 64.4 kg
[~2020-01-25 09:18] MED LIST changes: +ACID1TAB12 PO; -ALPR0.5T PO; +AMIN30LI4 PO; -APIX5TAB PO; -ASCO120G2 MC; +ASCO250T7 PO; +ASPI-1169 PO; +ATOR10TA PO; -ATOR80TA PO; +BENA20TA9 PO; +BLOO-668 IN; -CARV12.52 PO; +CARV6.252 PO; +CHOL200026 PO; -DIPH-530 PO; -DULO20CA PO; -FLUC100T PO; +FOLI0.8T23 PO; -FURO-145 PO; -GLIP10TA11 PO; +HEPA50008 SQ; +HYDR-4076 PO; +HYDR-4384 PO; +INSU100V11 SQ; -IPRA0.2S49 NEB; +IPRA0.2S9 IH; +ISOS60TA4 PO; -LIDO30AD10 TP; +METO2.5T2 PO; -METO50TA7 PO; -MINE120C3 TP; -MIRT15TA3 PO; -MULT-1168 PO; -NIFE60TA2 PO; +NITR0.4T48 SL
--- NOTE | 2020-01-25 09:20 | NUR ---
PT BIBRA 860 FROM US RENAL C/O R ARM PAIN AND SWELLING. PT IS AAOX3, NOT IN RESPIRATORY DISTRESS, HOOKED TO QUANTITATIVE ANALYST DEVELOPER, KEPT RESTED AND COMFORTABLE. WILL CONTINUE TO MONITOR.
[2020-01-25] MEDS ORDERED: VANCOMYCIN 1 GM in IV D5W 250 ML IV ONE (09:30)
[2020-01-25] MEDS ORDERED: PIPERACILLIN /TAZOBACTAM 3.375 G in IV D5W 50 ML IV ONE (09:30)
--- NOTE | 2020-01-25 09:35 | NUR ---
MOVE SHEET SUBMITTED TO ADMITTING AND CALLED FOR TELE BED.
--- NOTE | 2020-01-25 09:35 | NUR ---
SEEN AND EXAMINED BY .
--- NOTE | 2020-01-25 09:35 | NUR ---
IV LINE ESTABLISHED.
--- NOTE | 2020-01-25 09:37 | NUR ---
CALLED PHARMACY FOR ANTIBIOTIC.
--- NOTE | 2020-01-25 09:39 | NUR ---
ER PHLEB AT BEDSIDE FOR BLOOD DRAW.
--- NOTE | 2020-01-25 09:42 | NUR ---
COVID SWAB OBTAINED AND SENT TO LAB.
[2020-01-25] MEDS ORDERED: MIRCERA IVP (09:55)
[2020-01-25] MEDS ORDERED: zemplar IV (09:55)
[2020-01-25] MEDS ORDERED: ONDA4TAB5 PO (09:55)
[2020-01-25 09:56] LABS: BASOPHILS % (AUTO) 0.5 % (0.0-2.0); EOSINOPHILS % (AUTO) 1.8 % (0.0-6.0); HEMATOCRIT 36 % (33-45); HEMOGLOBIN 11.6 g/dL (11.5-14.8); LYMPHOCYTES # (AUTO) 1.4 /CMM (0.8-4.8); LYMPHOCYTES % (AUTO) 21.9 % (20.0-44.0); MEAN CORPUSCULAR HGB CONC 32 g/dl (31.0-36.0); MEAN CORPUSCULAR VOLUME 99 fL (82-100); MONOCYTES # (AUTO) 0.6 /CMM (0.1-1.30); MONOCYTES % (AUTO) 9.1 % (2.0-12.0); NEUTROPHILS # (AUTO) 4.1 /CMM (1.8-8.9); NEUTROPHILS % (AUTO) 66.7 % (43.0-81.0); PLATELET COUNT (AUTO) 200 /CMM (150-450); RED BLOOD CELL COUNT(AUTO) 3.66 MIL/uL (4.0-5.2); WHITE BLOOD COUNT (AUTO) 6.2 K/uL (4.3-11.0)
[2020-01-25] MEDS ORDERED: GLIP5TAB13 PO (09:58)
[2020-01-25] MEDS ORDERED: CLOP75TA15 PO (09:58)
[2020-01-25] MEDS ORDERED: ATOR80TA PO (09:58)
--- NOTE | 2020-01-25 09:58 | NUR ---
VETERINARY TECHNOLOGIST AT BEDSIDE FOR XRAY.
[2020-01-25] MEDS ORDERED: CHOL400T11 PO (10:00)
[2020-01-25 10:07] LABS: CALCIUM, SERUM 8.6 mg/dL (8.5-10.1); CARBON DIOXIDE 29 mmol/L (21-32); CHLORIDE 102 mmol/L (98-107); CREATININE 3.2 mg/dL (0.6-1.3); GLUCOSE 75 mg/dL (74-106); POTASSIUM 4.1 mmol/L (3.5-5.1); SODIUM SERUM 138 mmol/L (136-145); UREA NITROGEN, BLOOD 43 mg/dL (7-18)
[2020-01-25 10:12] LABS: ALANINE AMINOTRANSFERASE 16 U/L (12-78); ALBUMIN 3.7 g/dL (3.4-5.0); ALKALINE PHOSPHATASE 117 U/L (46-116); ASPARTATE AMINOTRANSFERASE 15 U/L (15-37); BILIRUBIN,DIRECT 0.1 mg/dL (0.0-0.2); BILIRUBIN,TOTAL 0.6 mg/dL (0.2-1.0); TOTAL PROTEIN, SERUM 8.2 g/dL (6.4-8.2)
--- NOTE | 2020-01-25 10:14 | NUR ---
alok nurse notes: pt brian speaking only, unable to recall her meds, called olivia (son), spoke to his and verified some of her meds that she is taking and updated her list of meds and some of her meds lists from dialysis center also updated.
--- NOTE | 2020-01-25 10:18 | NUR ---
CALLED DR. LEZAMA [phone] [facility]
[2020-01-25] MEDS ORDERED: MAGNESIUM HYDROXIDE 30 ML UDC PO PRN (11:30)
[2020-01-25] MEDS ORDERED: ACETAMINOPHEN 325 MG TABLET PO PRN (11:30)
[2020-01-25] MEDS ORDERED: ONDANSETRON HCL/PF 4 MG/2 ML VIAL IVP PRN (11:30)
[2020-01-25] MEDS ORDERED: Z GUARD REMEDY 2 OZ OINT TP PRN (11:30)
[2020-01-25] MEDS ORDERED: MAG HYDROX/AL HYDROX/SIMETH 30 ML UDC PO PRN (11:30)
[2020-01-25] MEDS ORDERED: HYDROCODONE/APAP 5/325MG 1 EACH TABLET PO PRN (11:30)
--- NOTE | 2020-01-25 12:13 | NUR ---
FOLLOW UP MAIN LAB FOR COVID ANTIGEN RESULT.
--- NOTE | 2020-01-25 13:06 | NUR ---
COVID RESULTS: NEGATIVE
--- NOTE | 2020-01-25 13:09 | NUR ---
ROOM 200
--- NOTE | 2020-01-25 13:32 | NUR ---
REPORT GIVEN TO RUBY OF MS UNIT
--- NOTE | 2020-01-25 13:41 | NUR ---
BELONGINGS LIST DONE
--- NOTE | 2020-01-25 13:46 | NUR ---
MRSA DONE AND SENT TO LAB
[2020-01-25] MEDS ORDERED: hydrALAZINE HCL IV 20 MG VIAL IV PRN (14:00)
--- NOTE | 2020-01-25 14:05 | NUR ---
MS POLITICAL SCIENCE FACULTY MEMBER NOTE PATIENT ARRIVED FROM ER BY SARWAT AND TRANSFERRED TO BED. PATIENT IN NO ACUTE DISTRESS. NO SOB NOTED. PATIENT BREATHING IS EVEN AND UNLABORED. PATIENT ON ROOM AIR SATURATING >95% SPO2. PATIENT BED ALARM IS ON. PATIENT SAFETY PRECAUTIONS IN PLACE. PATIENT BED IS LOCKED AND IN LOWEST POSITION. CALL LIGHT WITHIN REACH. DR. LEZAMA MADE AWARE OF PATIENT ARRIVAL. Addendum: 01/25/20 at 1425 by RUBY SAM RN MS POLITICAL SCIENCE FACULTY MEMBER NOTE PATIENT ARRIVED FROM ER BY [facility]WAT AND TRANSFERRED TO BED. PATIENT IN NO ACUTE DISTRESS. NO SOB NOTED. PATIENT BREATHING IS EVEN AND UNLABORED. PATIENT ON ROOM AIR SATURATING >95% SPO2. PATIENT BED ALARM IS ON. PATIENT SAFETY PRECAUTIONS IN PLACE. PATIENT BED IS LOCKED AND IN LOWEST POSITION. CALL LIGHT WITHIN REACH. WILL CONTINUE TO MONITOR. DR. LEZAMA MADE AWARE OF PATIENT ARRIVAL.
[2020-01-25 14:10] VITALS: BP 154/73
--- NOTE | 2020-01-25 14:30 | NUR ---
MS RN NOTE SPOKE WITH DR. LEZAMA. PER MD ORDER FOR DVT PUMPS TO BE PLACED.
[2020-01-25] MEDS ORDERED: FEE PK DOSING 1 MIN EA MC ONE (15:06)
[2020-01-25] MEDS ORDERED: VANCOMYCIN 500 MG in IV D5W 100 ML IV PRN (15:30)
[2020-01-25] MEDS ORDERED: DEXTROSE 50%-WATER 50 ML DISP.SYRIN IV PRN (16:30)
--- NOTE | 2020-01-25 16:45 | NUR ---
MS RN NOTE SPOKE WITH DR. LEZAMA AND INFORMED HIM OF PATIENT HISTORY WITH DIABETES AND VTE SCORE OF 4. PER DR. LEZAMA ORDERS FOR HEPARIN 5000 SQ Q12 BID AND MILD SLIDING SCALE ACHS.
[2020-01-25] MEDS: BLOOD SUGAR DIAGNOSTIC 1 EACH STRIP IN SCH ×2 (16:59→21:04)
[2020-01-25] MEDS: glipiZIDE 5 MG TABLET PO SCH (16:59)
--- NOTE | 2020-01-25 17:05 | NUR ---
MS RN NOTE PATIENT BLOOD SUGAR 68. NO INSULIN COVERAGE NEEDED PER PROTOCOL. SNACKS PROVIDED WITH BLOOD SUGAR OF 68.
--- NOTE | 2020-01-25 17:06 | NUR ---
MS RN NOTE PATIENT BLOOD PRESSURE 161/75, HR 94. HYDRALAZINE PRN GIVEN ORDERED.
[2020-01-25 17:59] VITALS: BP 161/72
--- NOTE | 2020-01-25 18:30 | NUR ---
MS RN NOTE SPOKE WITH DR. LEZAMA ABOUT PATIENT BEING ON PLAVIX AND HEPARIN. PER MD ORDERS TO KEEP PATIENT ON BOTH PLAVIX AND HEPARIN.
--- NOTE | 2020-01-25 18:40 | NUR ---
MS RN CLOSING NOTE PATIENT IN BED RESTING COMFORTABLY. PATIENT IN NO ACUTE DISTRESS. NO SOB NOTED. PATIENT BREATHING IS EVEN AND UNLABORED. PATIENT ON ROOM AIR SATURATING >95% SPO2. PATIENT BLOOD SUGAR 126 AND PATIENT ATE AND TOLERATED DINNER WELL. PATIENT KEPT CLEAN, DRY, AND COMFORTABLE THROUGHOUT SHIFT. PATIENT BED ALARM IS ON. PATIENT SAFETY PRECAUTIONS IN PLACE. PATIENT BED IS LOCKED AND IN LOWEST POSITION. CALL LIGHT WITHIN REACH. WILL ENDORSE CARE TO PM SHIFT FOR MARBIN.
--- NOTE | 2020-01-25 19:30 | NUR ---
MS/RN OPENING NOTES: RECEIVED PATIENT IN BED RESTING COMFORTABLY. PATIENT IN NO ACUTE DISTRESS. NO SOB NOTED. PATIENT BREATHING IS EVEN AND UNLABORED. PATIENT ON ROOM AIR SATURATING >95% SPO2. PATIENT IS SITTING IN BED. PATIENT BED ALARM IS ON. PATIENT SAFETY PRECAUTIONS IN PLACE. PATIENT BED IS LOCKED AND IN LOWEST POSITION. CALL LIGHT WITHIN REACH. WILL MONITOR ACCORDINGLY.
--- NOTE | 2020-01-25 19:35 | NUR ---
MS/RN NOTES: CALLED PT'S SON MARGOT TO OBTAIN CONSENT FOR HEMODIALYSIS. WITNESSED WITH ANOTHER RN, RUBY. WILL CONTINUE TO MONITOR.
[2020-01-25 20:00] VITALS: BP 117/70
[2020-01-25] MEDS: CARVEDILOL 6.25 MG TABLET PO SCH (20:30)
[2020-01-25] MEDS: HEPARIN SODIUM, PORCINE 5000 UNITS/1 ML VIAL SQ SCH (20:30)
[2020-01-25] MEDS: INSULIN REGULAR, HUMAN 100 UNIT/ML 3 ML VIAL SQ PRN (21:06)
[2020-01-25] MEDS ORDERED: ZOLPIDEM TARTRATE 5 MG TABLET PO PRN (22:00)
--- NOTE | 2020-01-25 22:00 | NUR ---
MS/RN NOTES: ACCUCHECK FOR HS IS 125. NO INSULIN COVERAGE NEEDED PER SLIDING SCALE. WILL CONTINUE TO MONITOR ACCORDINGLY.
--- NOTE | 2020-01-26 00:10 | NUR ---
MS/RN NOTES: RECEIVED VANCO RANDOM RESULT 9. TAX ACCOUNTING ASSISTANT PHARMACIST UNAVAILABLE. NOTIFIED SERVICE DISMANTLER. STATES HE WILL LOOK FOR THE LIST BECAUSE [facility] DOESN'T DOSE ANTIBIOTIC.
--- NOTE | 2020-01-26 00:41 | NUR ---
MS/RN NOTES: LEFT CHERYL, PHARMACIST A VOICEMAIL ORDERED BY NURSING ZIPPER MEASURER ELIAZAR. STILL WAITING FOR ORDERS. WILL F/U.
--- NOTE | 2020-01-26 00:51 | NUR ---
MS/RN NOTES: PER NURSING NETWORK SUPPORT, UNABLE TO FIND THE RIDE ATTENDANT PHARMACISTS, AND TO GIVE THE VANCO 500MG DOSE ORDERED AND F/U WITH THE PHARMACIST IN THE MORNING.
[2020-01-26] MEDS ORDERED: VANCOMYCIN 500 MG VIAL ONE (00:59)
--- NOTE | 2020-01-26 01:56 | NUR ---
MS/RN NOTES: VANCOMYCIN 500MG PRN HD ADMINISTERED ORDERED. NURSING GREENKEEPER AWARE. CHARGE NURSE AWARE. WILL F/U WITH THE PHARMACIST IN MORNING.
[2020-01-26] MEDS: BLOOD SUGAR DIAGNOSTIC 1 EACH STRIP IN SCH ×4 (06:30→21:19)
--- NOTE | 2020-01-26 06:30 | NUR ---
MS/RN NOTES: ACCUCHECK FOR AC IS 76. NO INSULIN COVERAGE NEEDED PER SLIDING SCALE. GAVE PATIENT APPLE JUICE. TOLERATED WELL. WILL CONTINUE TO MONITOR ACCORDINGLY.
[2020-01-26] MEDS: INSULIN REGULAR, HUMAN 100 UNIT/ML 3 ML VIAL SQ PRN ×2 (06:31→17:55)
[2020-01-26 06:46] LABS: CALCIUM, SERUM 8.8 mg/dL (8.5-10.1); CARBON DIOXIDE 28 mmol/L (21-32); CHLORIDE 102 mmol/L (98-107); CREATININE 2.2 mg/dL (0.6-1.3); GLUCOSE 71 mg/dL (74-106); MAGNESIUM 2.3 mg/dL (1.8-2.4); SODIUM SERUM 138 mmol/L (136-145); UREA NITROGEN, BLOOD 21 mg/dL (7-18)
--- NOTE | 2020-01-26 06:49 | NUR ---
MS/RN CLOSING NOTES: PATIENT IN BED RESTING COMFORTABLY. REMAINS A/OX3. IN NO ACUTE DISTRESS. NO SOB NOTED. PATIENT BREATHING IS EVEN AND UNLABORED. SATURATING >95% SPO2 ON ROOM AIR. PATIENT KEPT CLEAN, DRY, AND COMFORTABLE THROUGHOUT SHIFT. S/P HD WITH TOTAL OUTPUT OF 2.5L. VSS. PATIENT BED ALARM IS ON. PATIENT SAFETY PRECAUTIONS IN PLACE. PATIENT BED IS LOCKED AND IN LOWEST POSITION. CALL LIGHT WITHIN REACH. WILL ENDORSE CARE TO AM SHIFT FOR MARBIN.
[2020-01-26 06:50] LABS: BASOPHILS % (AUTO) 0.6 % (0.0-2.0); EOSINOPHILS % (AUTO) 2.3 % (0.0-6.0); HEMATOCRIT 35 % (33-45); HEMOGLOBIN 11.3 g/dL (11.5-14.8); MEAN CORPUSCULAR HGB CONC 32 g/dl (31.0-36.0); MEAN CORPUSCULAR VOLUME 97 fL (82-100); MONOCYTES # (AUTO) 0.4 /CMM (0.1-1.30); MONOCYTES % (AUTO) 10.3 % (2.0-12.0); NEUTROPHILS # (AUTO) 2.7 /CMM (1.8-8.9); NEUTROPHILS % (AUTO) 62.8 % (43.0-81.0); PLATELET COUNT (AUTO) 187 /CMM (150-450); RED BLOOD CELL COUNT(AUTO) 3.58 MIL/uL (4.0-5.2); WHITE BLOOD COUNT (AUTO) 4.4 K/uL (4.3-11.0)
[2020-01-26 06:55] LABS: CHOLESTEROL 263 mg/dL (<200); HDL CHOLESTEROL 71 mg/dL (40-60); LDL 162 mg/dL (0-99); TRIGLYCERIDES 119 mg/dL (30-150)
--- NOTE | 2020-01-26 07:10 | NUR ---
MS RN NOTES PATIENT IN BED ALERT ORIENTED X 2-3. NO ACUTE DISTRESS NOTED. BREATHING UNLABORED. IV ACCESS PATENT AND INTACT, NO REDNESS, NO SWELLING NOTED. SAFETY MEASURES IN PLACE. CALL LIGHT WITHIN REACH. WILL CONTINUE TO MONITOR ACCORDINGLY.
[2020-01-26] MEDS: PANTOPRAZOLE 40 MG/PACK PACK PO SCH (07:34)
[2020-01-26 08:00] VITALS: BP 141/84
[2020-01-26] MEDS: ISOSORBIDE MONONITRATE (30MG) 30 MG TAB.SR.24H PO SCH (09:15)
[2020-01-26] MEDS: CLOPIDOGREL BISULFATE 75 MG TABLET PO SCH (09:15)
[2020-01-26] MEDS: glipiZIDE 5 MG TABLET PO SCH ×2 (09:15→17:55)
[2020-01-26] MEDS: ATORVASTATIN 40 MG TABLET PO SCH (09:15)
[2020-01-26] MEDS: HEPARIN SODIUM, PORCINE 5000 UNITS/1 ML VIAL SQ SCH ×2 (09:15→21:14)
[2020-01-26] MEDS: ASPIRIN 81 MG TAB.CHEW PO SCH (09:15)
[2020-01-26] MEDS: CARVEDILOL 6.25 MG TABLET PO SCH ×2 (09:16→21:13)
[2020-01-26] MEDS: CHOLECALCIFEROL (VITAMIN D 3) 400 UNIT TABLET PO SCH (09:17)
[2020-01-26] MEDS ORDERED: VANCOMYCIN 500 MG in IV D5W 100 ML IV ONE (13:00)
[2020-01-26 17:33] VITALS: BP 126/59
--- NOTE | 2020-01-26 18:42 | NUR ---
MS RN NOTES PATIENT IN BED ALERT ORIENTED X 2-3. NO ACUTE DISTRESS NOTED. BREATHING UNLABORED. DENIED PAIN AT THIS TIME. IV ACCESS PATENT AND INTACT, NO REDNESS, NO SWELLING NOTED. NEEDS ATTENDED AND ANTICIPATED. KEPT COMFORTABLE. HEAD OF BED ELEVATED. SAFETY MEASURES IN PLACE. CALL LIGHT WITHIN REACH. WILL ENDORSE TO NIGHT FOR CONTINUITY OF CARE
--- NOTE | 2020-01-26 19:45 | NUR ---
MS RN OPENING NOTES PATIENT RECEIVED RESTING IN BED A/O X 2-3. STABLE ON RA WITH BREATHING EVEN AND UNLABORED, NO SOB NOTED. NO SIGNS OF ACUTE DISTRESS. NO COMPLAINTS OF PAIN AND DISCOMFORT. IV LOCATED ON R FA #20 AND KAYCEE FISTULA NOTED AND IN PLACE. SAFETY PRECAUTIONS IN PLACE WITH BED IN LOWEST POSITION, CALL LIGHT WITHIN REACH, BREAKS ON, SIDE RAILS UP. WILL CONTINUE TO MONITOR THROUGHOUT THE NIGHT.
[2020-01-26 20:00] VITALS: BP 141/74
[2020-01-26 20:17] VITALS: BP 141/74
[2020-01-27] MEDS: BLOOD SUGAR DIAGNOSTIC 1 EACH STRIP IN SCH ×2 (06:50→11:59)
--- NOTE | 2020-01-27 07:01 | NUR ---
MS RN CLOSING NOTES PATIENT RESTING IN BED A/O X 2-3. STABLE ON RA WITH BREATHING EVEN AND UNLABORED, NO SOB NOTED. NO SIGNS OF ACUTE DISTRESS. NO COMPLAINTS OF PAIN AND DISCOMFORT. IV LOCATED ON R FA #20 AND KAYCEE FISTULA NOTED AND IN PLACE. SAFETY PRECAUTIONS IN PLACE WITH BED IN LOWEST POSITION, CALL LIGHT WITHIN REACH, BREAKS ON, SIDE RAILS UP. ALL NEEDS ATTENDED TO. PATIENT KEPT CLEAN AND DRY. WILL ENDORSE TO ONCOMING SHIFT ABOUT MARBIN.
[2020-01-27 07:21] LABS: CALCIUM, SERUM 8.8 mg/dL (8.5-10.1); CARBON DIOXIDE 30 mmol/L (21-32); CHLORIDE 101 mmol/L (98-107); CREATININE 3.2 mg/dL (0.6-1.3); GLUCOSE 75 mg/dL (74-106); POTASSIUM 4.8 mmol/L (3.5-5.1); SODIUM SERUM 137 mmol/L (136-145); UREA NITROGEN, BLOOD 35 mg/dL (7-18)
--- NOTE | 2020-01-27 07:25 | NUR ---
MS RN NOTES RECEIVED PT IN BED, AWAKE, A/OX2-3, PITCAIRN ISLANDER SPEAKING BUT ABLE TO UNDERSTAND AND SPEAK [place]. PT TOLERATING RA, WITH NO ACUTE RESPIRATORY DISTRESS NOTED. PT DENIES ANY PAIN OR DISCOMFORT AT THIS TIME. PT DENIES ANY QUESTIONS OR CONCERN. PIV TO RFA G20, FLUSHED WITH NS, INTACT AND OPERATIONAL. LEFT ARM SWOLLEN/CELLULITIS NOTED, PER NIGHT NURSE NEGATIVE FOR DVT. KAYCEE HD ACCESS PRESENT WELL. PT KEPT COMFORTABLE IN BED. CALL LIGHT KEPT WITHIN REACH. PT'S BED IN LOWEST, LOCKED, POSITION WITH SRX3. WILL CONTINUE PLAN OF CARE.
[2020-01-27 07:31] LABS: BASOPHILS % (AUTO) 0.3 % (0.0-2.0); EOSINOPHILS % (AUTO) 1.4 % (0.0-6.0); HEMATOCRIT 37 % (33-45); HEMOGLOBIN 11.6 g/dL (11.5-14.8); LYMPHOCYTES # (AUTO) 1.2 /CMM (0.8-4.8); LYMPHOCYTES % (AUTO) 20.2 % (20.0-44.0); MEAN CORPUSCULAR HGB CONC 32 g/dl (31.0-36.0); MEAN CORPUSCULAR VOLUME 98 fL (82-100); MONOCYTES # (AUTO) 0.4 /CMM (0.1-1.30); NEUTROPHILS # (AUTO) 4.3 /CMM (1.8-8.9); NEUTROPHILS % (AUTO) 71.1 % (43.0-81.0); PLATELET COUNT (AUTO) 187 /CMM (150-450); RED BLOOD CELL COUNT(AUTO) 3.73 MIL/uL (4.0-5.2)
[2020-01-27] MEDS: PANTOPRAZOLE 40 MG/PACK PACK PO SCH (07:53)
[2020-01-27 08:00] VITALS: BP 150/70
[2020-01-27] MEDS: ISOSORBIDE MONONITRATE (30MG) 30 MG TAB.SR.24H PO SCH (08:04)
[2020-01-27] MEDS: ATORVASTATIN 40 MG TABLET PO SCH (08:04)
[2020-01-27] MEDS: CLOPIDOGREL BISULFATE 75 MG TABLET PO SCH (08:04)
[2020-01-27] MEDS: glipiZIDE 5 MG TABLET PO SCH (08:04)
[2020-01-27 08:05] VITALS: BP 150/70
[2020-01-27] MEDS: CARVEDILOL 6.25 MG TABLET PO SCH (08:05)
[2020-01-27] MEDS: ASPIRIN 81 MG TAB.CHEW PO SCH (08:05)
[2020-01-27] MEDS: HEPARIN SODIUM, PORCINE 5000 UNITS/1 ML VIAL SQ SCH (08:06)
[2020-01-27] MEDS: CHOLECALCIFEROL (VITAMIN D 3) 400 UNIT TABLET PO SCH (08:07)
--- NOTE | 2020-01-27 09:10 | NUR ---
MS RN NOTES INVESTIGATION LIEUTENANT/BILL AT THE UNIT TO DIALYZE PT.
--- NOTE | 2020-01-27 15:24 | NUR ---
MS ROLLOFF TRUCK DRIVER NOTES PT AWAKE, A/O X2-3, TOLERATING RA WITH NO ACUTE RESPIRATORY DISTRESS NOTED. PT DENIES ANY PAIN OR DISCOMFORT AT THE TIME OF DISCHARGE. PIV TO RFA G20, REMOVED AND APPLIED DRY DRESSING. SKIN ASSESSED, PICTURES TAKEN AND FILED IN THE CHART. NO PRESCRIPTIONS GIVEN. DISCHARGE INSTRUCTIONS AND INVENTORY LIST REVIEWED AND SIGNED BY PT, ALSO NOTIFIED LANDON/RIZWAN WHO ACCOMPANIED PT TO HOME. ALL NEEDS AND CARE ATTENDED. VITALS STABLE. PT ESCORTED TO THE LOBBY VIA WHEELCHAIR. PT LEFT THE HOSPITAL AT 1515, HOSPITALIST/DT AND DR LEZAMA AWARE OF DISCHARGE.
== END 2020-01-27 15:15 | disposition home or self-care (01) | DRG 602 ==
LOC: ER 09:19 → TELE2 13:37 → MEDSG2 14:06
PROVIDERS: ADMIT Internal Medicine; ATTEND Internal Medicine
PROC: 5A1D70Z Performance of Urinary Filtration, Intermittent, Less than 6 Hours Per Day (ICD-10-PCS; principal; 2020-01-25)
DX: L03.114 Cellulitis of left upper limb (principal); N18.6 End stage renal disease; G93.41 Metabolic encephalopathy; I12.0 Hypertensive chronic kidney disease with stage 5 chronic kidney disease or end stage renal disease; D68.69 Other thrombophilia; I87.1 Compression of vein; N25.81 Secondary hyperparathyroidism of renal origin; E78.5 Hyperlipidemia, unspecified; E11.22 Type 2 diabetes mellitus with diabetic chronic kidney disease; Z99.2 Dependence on renal dialysis; D63.1 Anemia in chronic kidney disease; E03.9 Hypothyroidism, unspecified; I25.10 Atherosclerotic heart disease of native coronary artery without angina pectoris; K21.9 Gastro-esophageal reflux disease without esophagitis; Z79.82 Long term (current) use of aspirin; Z95.1 Presence of aortocoronary bypass graft; D50.9 Iron deficiency anemia, unspecified; L02.414 Cutaneous abscess of left upper limb; Z79.02 Long term (current) use of antithrombotics/antiplatelets; Z79.4 Long term (current) use of insulin
CPT/HCPCS: 36415; 71045-TC; 80048-TC; 80061-TC; 80076-TC; 80202-TC; 82962-TC; 83605-TC; 83735-TC; 84100-TC; 85025-TC; 85730-TC; 86706; 87040-TC; 87081-TC; 87340; 90935-TC; 93971-TC; G0378; J0360; J1644; J1815; J2543; J3370; J7060

== ENCOUNTER 2020-08-20 08:12 | Inpatient (IN) | payer MEDICARE, OTHER ==
[~2020-08-20] VITALS: Ht 152.4 cm; Wt 63.8 kg
[~2020-08-20 08:12] MED LIST changes: +ACET-2605 PO; -ACID1TAB12 PO; -AMIN30LI4 PO; -ASCO250T7 PO; -ASPI-1169 PO; +ASPI-1420 PO; -ATOR10TA PO; +ATOR40TA PO; -BENA20TA9 PO; -BISA5TAB19 PO; -BLOO-668 IN; -CALC-494 PO; -CHOL200026 PO; +CHOL400T PO; +CLOP75TA15 PO; +DIPH25CA51 PO; +DOCU-141 PO; -DOCU100C36 PO; -FOLI0.8T23 PO; +FURO-144 PO; +GLIP5TAB13 PO; -HEPA50008 SQ; -HYDR-3974 PO; -HYDR-4076 PO; -HYDR-4384 PO; -INSU100V11 SQ; -IPRA0.2S9 IH; -ISOS60TA4 PO; +ISOS60TA72 PO; -METO2.5T2 PO; +NITR0.4T48 PO; -NITR0.4T48 SL; -PANT40SU PO
--- NOTE | 2020-08-20 08:35 | NUR ---
BIB ems frm dialysis for mid sternal chest pain with shortness of breath, 02 @2LPM VIA NC. connected to the monitor and pulse ox. kept comfortable, will continue to monitor accordingly.
--- NOTE | 2020-08-20 08:37 | NUR ---
MOVE SHEET SUBMITTED AND CALLED FOR TELE BED.
[2020-08-20 08:51] LABS: BASOPHILS # (AUTO) 0.1 /CMM (0.0-0.2); BASOPHILS % (AUTO) 1.1 % (0.0-2.0); EOSINOPHILS % (AUTO) 0.7 % (0.0-6.0); HEMATOCRIT 32 % (33-45); HEMOGLOBIN 10.2 g/dL (11.5-14.8); LYMPHOCYTES # (AUTO) 0.9 /CMM (0.8-4.8); LYMPHOCYTES % (AUTO) 8.5 % (20.0-44.0); MEAN CORPUSCULAR HGB CONC 32 g/dl (31.0-36.0); MEAN CORPUSCULAR VOLUME 103 fL (82-100); MONOCYTES # (AUTO) 0.5 /CMM (0.1-1.30); MONOCYTES % (AUTO) 5.1 % (2.0-12.0); NEUTROPHILS # (AUTO) 8.7 /CMM (1.8-8.9); NEUTROPHILS % (AUTO) 84.6 % (43.0-81.0); PLATELET COUNT (AUTO) 245 /CMM (150-450); RED BLOOD CELL COUNT(AUTO) 3.12 MIL/uL (4.0-5.2); WHITE BLOOD COUNT (AUTO) 10.2 K/uL (4.3-11.0)
[2020-08-20 09:16] LABS: CALCIUM, SERUM 8.8 mg/dL (8.5-10.1); CARBON DIOXIDE 25 mmol/L (21-32); CHLORIDE 99 mmol/L (98-107); CREATININE 4.2 mg/dL (0.6-1.3); GLUCOSE 169 mg/dL (74-106); POTASSIUM 4.9 mmol/L (3.5-5.1); SODIUM SERUM 139 mmol/L (136-145); UREA NITROGEN, BLOOD 69 mg/dL (7-18)
[2020-08-20] MEDS ORDERED: MORPHINE SULFATE INJ 4 MG/ML DISP.SYRIN ONE (09:41)
[2020-08-20] MEDS ORDERED: ONDANSETRON HCL/PF 4 MG/2 ML VIAL ONE (09:41)
[2020-08-20] MEDS ORDERED: MORPHINE SULFATE INJ 2 MG/ML DISP.SYRIN IV ONE (10:00)
[2020-08-20] MEDS ORDERED: ONDANSETRON HCL/PF 4 MG/2 ML VIAL IVP ONE (10:00)
[2020-08-20] MEDS ORDERED: CHOLECALCIFEROL (VITAMIN D 3) 400 UNIT TABLET PO SCH (11:30)
[2020-08-20] MEDS ORDERED: DEXTROSE 50%-WATER 50 ML DISP.SYRIN IV PRN (11:30)
[2020-08-20] MEDS ORDERED: NITROGLYCERIN 0.4 MG/TAB BOTTLE SL PRN (11:30)
[2020-08-20] MEDS ORDERED: diphenhydrAMINE HCL 25 MG CAPSULE PO PRN (11:30)
[2020-08-20] MEDS: BLOOD SUGAR DIAGNOSTIC 1 EACH STRIP IN SCH ×3 (12:00→22:28)
--- NOTE | 2020-08-20 12:52 | NUR ---
GOT BED 309-1
--- NOTE | 2020-08-20 13:21 | NUR ---
report given to Tej DANG for shanti
[2020-08-20 13:29] LABS: THYROID STIMULATING HORMONE 1.019 uIU/mL (0.358-3.74)
--- NOTE | 2020-08-20 13:40 | NUR ---
tele principal secretary: admission admitted this 80 year old female pt from [facility] with dx: chest pain, a/ox4; brian speaking only. spoke to grandson over the phone for translation. oriented to room and surroundings. tele sr=69. vss, afebrile. no c/o pain or any discomfort. pt for hd tx and obtained consent. called christianne (hd nurse) and made aware, stated, "selene will do it." pt made aware. instructed to call for assistance. will continue to monitor.
[2020-08-20 13:45] VITALS: BP 126/60
--- NOTE | 2020-08-20 13:48 | NUR ---
wheeled patient via gurney accompanied by RN and emt in no distress. Nurse at bedside to assume care.
--- NOTE | 2020-08-20 15:40 | NUR ---
tele intelligence chief: notes selene (hd nurse) here and preparing pt for hd tx.
[2020-08-20 16:00] VITALS: BP 126/71
[2020-08-20] MEDS ORDERED: CARVEDILOL 6.25 MG TABLET PO SCH (17:00)
[2020-08-20 17:40] VITALS: BP 126/60
[2020-08-20] MEDS: ASPIRIN EC 81 MG TABLET.DR PO SCH (17:48)
[2020-08-20] MEDS: glipiZIDE 5 MG TABLET PO SCH (17:49)
--- NOTE | 2020-08-20 18:30 | NUR ---
tele bed maker: notes taken to bathroom, voided, and taken back to bed safely. instructed to call for assistance. will continue to monitor.
--- NOTE | 2020-08-20 19:00 | NUR ---
m/s assistant news director: notes report given to melly (rn) for continuity of care.
--- NOTE | 2020-08-20 19:44 | NUR ---
RN NOTES RECEIVED PT ALERT AND ORIENTED X4 NO RESPIRATORY DISTRESS NOTED AT THIS TIME OR REPORTED. NO PAIN OR DISCOMFORT VISIBLE OR REPORTED. R HAND IV ACCESS 20G L AV SHUNT PRESENT. ALL NURSING NEEDS MET AT THIS TIME. CALL LIGHT WITHIN REACH. SAFETY PRECAUTIONS FOLLOWED. WILL CONTINUE TO MONITOR.
[2020-08-20 20:42] VITALS: BP 122/52
[2020-08-20] MEDS: INSULIN REGULAR, HUMAN 100 UNIT/ML 3 ML VIAL SQ PRN (22:34)
[2020-08-21 00:37] VITALS: BP 93/51
[2020-08-21 03:59] VITALS: BP 105/51
[2020-08-21] MEDS: BLOOD SUGAR DIAGNOSTIC 1 EACH STRIP IN SCH ×4 (06:24→21:19)
--- NOTE | 2020-08-21 06:31 | NUR ---
RN NOTES RECEIVED PT ALERT AND ORIENTED X4 NO RESPIRATORY DISTRESS NOTED AT THIS TIME OR REPORTED. NO PAIN OR DISCOMFORT VISIBLE OR REPORTED. R HAND IV ACCESS 20G L AV SHUNT PRESENT. ALL NURSING NEEDS MET AT THIS TIME. CALL LIGHT WITHIN REACH. SAFETY PRECAUTIONS FOLLOWED. WILL ENDORSE CARE TO DAY SHIFT
[2020-08-21 06:34] LABS: BASOPHILS % (AUTO) 0.6 % (0.0-2.0); EOSINOPHILS % (AUTO) 0.6 % (0.0-6.0); HEMATOCRIT 27 % (33-45); HEMOGLOBIN 8.5 g/dL (11.5-14.8); LYMPHOCYTES # (AUTO) 1.1 /CMM (0.8-4.8); LYMPHOCYTES % (AUTO) 14.3 % (20.0-44.0); MEAN CORPUSCULAR HGB CONC 32 g/dl (31.0-36.0); MEAN CORPUSCULAR VOLUME 102 fL (82-100); MONOCYTES # (AUTO) 0.7 /CMM (0.1-1.30); MONOCYTES % (AUTO) 9.5 % (2.0-12.0); NEUTROPHILS # (AUTO) 5.7 /CMM (1.8-8.9); PLATELET COUNT (AUTO) 209 /CMM (150-450); RED BLOOD CELL COUNT(AUTO) 2.62 MIL/uL (4.0-5.2); WHITE BLOOD COUNT (AUTO) 7.6 K/uL (4.3-11.0)
[2020-08-21 07:33] LABS: ALANINE AMINOTRANSFERASE 51 U/L (12-78); ALBUMIN 3.7 g/dL (3.4-5.0); ALKALINE PHOSPHATASE 108 U/L (46-116); ASPARTATE AMINOTRANSFERASE 42 U/L (15-37); BILIRUBIN,TOTAL 1.5 mg/dL (0.2-1.0); CALCIUM, SERUM 8.5 mg/dL (8.5-10.1); CARBON DIOXIDE 32 mmol/L (21-32); CHLORIDE 98 mmol/L (98-107); CREATININE 3.5 mg/dL (0.6-1.3); GLUCOSE 69 mg/dL (74-106); MAGNESIUM 2.4 mg/dL (1.8-2.4); PHOSPHORUS 5.1 mg/dL (2.5-4.9); POTASSIUM 4.4 mmol/L (3.5-5.1); SODIUM SERUM 139 mmol/L (136-145); TOTAL PROTEIN, SERUM 7.9 g/dL (6.4-8.2); UREA NITROGEN, BLOOD 50 mg/dL (7-18)
--- NOTE | 2020-08-21 07:51 | NUR ---
WOUND CARE CONSULT: REVIEWED CHART, NURSING DOCUMENTATION AND PHOTOS WHICH INDICATE STERNAL WOUND AND DISCOLORED AREAS TO BUTTOCKS AND EXTREMITIES, PRESENT ON ADMISSION. DR SHELBY NOTIFIED OF SURGICAL CONSULT REQUEST. RECOMMENDATIONS MADE FOR SKIN PROTECTION. DISCUSSED WITH NURSING STAFF. MD IN AGREEMENT WITH PLAN OF CARE.
[2020-08-21 08:00] VITALS: BP 113/55
[2020-08-21] MEDS ORDERED: Z GUARD REMEDY 2 OZ OINT TP PRN (08:00)
--- NOTE | 2020-08-21 08:00 | NUR ---
RN Opening note Received patient AO x 4 Turkmen speaking, patient does no appears pain or distress, skin is warm to touch keep clean/dry, intact IV site and left upper arm AV shunt. Kept elevated HOB for ensure airway and aspiration precaution also lower bed position with bed alarm on for safety. Patient noticed troponin 0.802, received order CTA by Dr. Carlson. Call light within reach, will continue to monitor.
[2020-08-21] MEDS: ISOSORBIDE MONONITRATE (30MG) 30 MG TAB.SR.24H PO SCH (09:00)
[2020-08-21] MEDS: CARVEDILOL 6.25 MG TABLET PO SCH ×2 (09:00→21:18)
[2020-08-21] MEDS: glipiZIDE 5 MG TABLET PO SCH ×2 (09:00→11:48)
[2020-08-21] MEDS: DOCUSATE SODIUM 100 MG CAPSULE PO SCH (09:25)
[2020-08-21] MEDS: CLOPIDOGREL BISULFATE 75 MG TABLET PO SCH (09:25)
[2020-08-21] MEDS: ASPIRIN EC 81 MG TABLET.DR PO SCH (09:25)
[2020-08-21] MEDS: ATORVASTATIN 40 MG TABLET PO SCH (09:25)
[2020-08-21] MEDS: FUROSEMIDE 40 MG TABLET PO SCH (09:25)
[2020-08-21] MEDS: Z GUARD REMEDY 2 OZ OINT TP SCH (09:32)
--- NOTE | 2020-08-21 09:33 | NUR ---
Patient BS 69mg/dl this morning, will hold Glucophage at this time.
[2020-08-21] MEDS ORDERED: NITROGLYCERIN 0.4 MG/TAB BOTTLE ONE (10:35)
[2020-08-21] MEDS ORDERED: IOHEXOL-350 100 ML VIAL IV ONE (10:35)
[2020-08-21] MEDS ORDERED: METOPROLOL TARTRATE INJ 5 MG/5 ML AMPUL ONE (10:36)
[2020-08-21] MEDS ORDERED: IV NS 0.9% 250 ML IV ONE (10:36)
[2020-08-21] MEDS ORDERED: CT SWABBABLE VALVE TRANS SET 1 EA INFUS.SET MC ONE (10:36)
[2020-08-21] MEDS ORDERED: NITROGLYCERIN 0.4 MG/TAB BOTTLE SL ONE (11:00)
[2020-08-21] MEDS ORDERED: METOPROLOL TARTRATE 50 MG TABLET PO PRN (11:00)
[2020-08-21 11:46] VITALS: BP 126/48
--- NOTE | 2020-08-21 11:49 | NUR ---
Patient had IV contrast, will hold Glipizide at 1700.
[2020-08-21 16:00] VITALS: BP 111/45
[2020-08-21] MEDS: ACETAMINOPHEN 325 MG TABLET PO PRN (17:05)
--- NOTE | 2020-08-21 18:00 | NUR ---
RN Closing note Patient in bed resting c/o back pain and given Tylenol, stable vital sign. Skin is warm to touch kept clean.dry, intact IV site and AV shunt on left arm, HD done today 1.1 L out put. Respiratory even and unlabored on room air. Keep elevated HOB for ensure airway and aspiration precaution and lowest bed position for safety. Call light within reach, will endorse maintenance technician 2nd shift.
[2020-08-21 20:00] VITALS: BP_SYST 125; BP_DIAS 58; BP_DIAS 60
--- NOTE | 2020-08-21 20:00 | NUR ---
RN NOTES RECEIVED PT. SLEEPING BUT AROUSABLE, A/OX4, LATVIAN SPEAKING, SR ON TELE MONITOR HR-77, DENIES PAIN NO SOB, CALL LIGHT WITHIN REACH, SIDERAILSUPX2, CONTINUE TO MONITOR
[2020-08-22] VITALS (7 sets, daily range): BP systolic 105–136; BP diastolic 52–66
--- NOTE | 2020-08-22 06:23 | NUR ---
RN NOTES AWAKE, MORNING CARE RENDERED, NO PAIN NOTED, CALL LIGHT WITHIN REACH,SIDERAILSUPX2, PT. NEEDS ATTENDED
[2020-08-22 06:41] LABS: BASOPHILS % (AUTO) 0.5 % (0.0-2.0); EOSINOPHILS % (AUTO) 1.1 % (0.0-6.0); HEMATOCRIT 25 % (33-45); HEMOGLOBIN 7.9 g/dL (11.5-14.8); LYMPHOCYTES # (AUTO) 0.9 /CMM (0.8-4.8); MEAN CORPUSCULAR HGB CONC 32 g/dl (31.0-36.0); MEAN CORPUSCULAR VOLUME 104 fL (82-100); MONOCYTES # (AUTO) 0.5 /CMM (0.1-1.30); MONOCYTES % (AUTO) 7.3 % (2.0-12.0); NEUTROPHILS # (AUTO) 5.1 /CMM (1.8-8.9); NEUTROPHILS % (AUTO) 78.1 % (43.0-81.0); PLATELET COUNT (AUTO) 167 /CMM (150-450); RED BLOOD CELL COUNT(AUTO) 2.43 MIL/uL (4.0-5.2); WHITE BLOOD COUNT (AUTO) 6.6 K/uL (4.3-11.0)
[2020-08-22] MEDS: BLOOD SUGAR DIAGNOSTIC 1 EACH STRIP IN SCH ×4 (06:44→21:57)
[2020-08-22 06:47] LABS: CALCIUM, SERUM 8.1 mg/dL (8.5-10.1); CARBON DIOXIDE 32 mmol/L (21-32); CHLORIDE 95 mmol/L (98-107); CREATININE 3.5 mg/dL (0.6-1.3); GLUCOSE 99 mg/dL (74-106); MAGNESIUM 2.2 mg/dL (1.8-2.4); POTASSIUM 4.2 mmol/L (3.5-5.1); SODIUM SERUM 137 mmol/L (136-145); UREA NITROGEN, BLOOD 43 mg/dL (7-18)
--- NOTE | 2020-08-22 07:48 | NUR ---
RN Opening note Received patient AO x 3-4, Mohawk speaking, patient denies pain or distress, skin is warm to touch keep clean/dry, intact IV site and left upper arm AV shunt. shelter monitor shows HR 68. Kept elevated HOB for ensure airway and aspiration precaution also lower bed position with bed alarm on for safety. Call light within reach, will continue to monitor.
[2020-08-22] MEDS: DOCUSATE SODIUM 100 MG CAPSULE PO SCH (08:24)
[2020-08-22] MEDS: ASPIRIN EC 81 MG TABLET.DR PO SCH (08:25)
[2020-08-22] MEDS: CLOPIDOGREL BISULFATE 75 MG TABLET PO SCH (08:25)
[2020-08-22] MEDS: CARVEDILOL 6.25 MG TABLET PO SCH ×2 (08:25→21:28)
[2020-08-22] MEDS: FUROSEMIDE 40 MG TABLET PO SCH (08:25)
[2020-08-22] MEDS: LOSARTAN POTASSIUM 50 MG TABLET PO SCH (08:25)
[2020-08-22] MEDS: ATORVASTATIN 40 MG TABLET PO SCH (08:25)
[2020-08-22] MEDS: glipiZIDE 5 MG TABLET PO SCH ×2 (08:25→17:00)
[2020-08-22] MEDS: ISOSORBIDE MONONITRATE (30MG) 30 MG TAB.SR.24H PO SCH (08:26)
[2020-08-22] MEDS: Z GUARD REMEDY 2 OZ OINT TP SCH (08:27)
--- NOTE | 2020-08-22 08:29 | NUR ---
Patient's BP 105/52 HR 69 and BS 90mg/dl does not eat enough breakfast also, will hold BP meds and glipizide.
--- NOTE | 2020-08-22 17:16 | NUR ---
Patient blood sugar is low and low appetite, will hold glipizide.
--- NOTE | 2020-08-22 18:37 | NUR ---
RN Closing note Patient in bed resting comfortably. Skin is warm to touch kept clean.dry, intact IV site and AV shunt on left arm. Respiratory even and unlabored on room air. Keep elevated HOB for ensure airway and aspiration precaution and lowest bed position for safety. stable vital sign. Call light within reach, will endorse production honing machine operator.
--- NOTE | 2020-08-22 19:35 | NUR ---
MACHINE FANCY STITCHER NOTES RECEIVED ON BED SLEEPING,AROUSABLE TO VERBAL STIMULI,BREATHING NON LABORED,O2 IN USED 2L/NC TO KEEP O2 SAT ABOVE 90%,DIALYSIS PATIENT,ANURIC.WITH LEFT AV SHUNT FOR HD TREATMENT,RIGHT HAND SALINE LOCK FOR MEDS INTACT AND PATENT.NOTED DRESSING ON STERNAL AREA,INTACT AND DRY.CALL LIGHT IN REACH,NEEDS ANTICIPATED.
--- NOTE | 2020-08-22 19:35 | NUR ---
GROCERY CARRIER NOTES SR-70 ON TELE MONITOR.
--- NOTE | 2020-08-22 22:00 | NUR ---
BIRTH CERTIFICATE CLERK NOTES ACCU-CHECK BLOOD SUGAR CHECK 101,NO INSULIN COVERAGE.
[2020-08-23] VITALS: BP 121/52
[2020-08-23 03:54] VITALS: BP 111/60
[2020-08-23 03:55] VITALS: BP 111/60
[2020-08-23] MEDS: BLOOD SUGAR DIAGNOSTIC 1 EACH STRIP IN SCH ×4 (05:33→22:13)
[2020-08-23 06:17] LABS: CALCIUM, SERUM 8.1 mg/dL (8.5-10.1); CARBON DIOXIDE 30 mmol/L (21-32); CHLORIDE 94 mmol/L (98-107); GLUCOSE 94 mg/dL (74-106); MAGNESIUM 2.2 mg/dL (1.8-2.4); PHOSPHORUS 6.3 mg/dL (2.5-4.9); POTASSIUM 4.6 mmol/L (3.5-5.1); SODIUM SERUM 136 mmol/L (136-145); UREA NITROGEN, BLOOD 60 mg/dL (7-18)
--- NOTE | 2020-08-23 06:21 | NUR ---
WHISKEY PROOF READER NOTES CALM AND QUIET THRU OUT SHIFT,NO FALL,NO INJURY.BLOOD SUGAR CHECK 93,NO INSULIN COVERAGE..IN NO ACUTE DISTRESS.
[2020-08-23 06:25] LABS: BASOPHILS % (AUTO) 0.7 % (0.0-2.0); EOSINOPHILS % (AUTO) 1.3 % (0.0-6.0); HEMATOCRIT 25 % (33-45); LYMPHOCYTES # (AUTO) 0.9 /CMM (0.8-4.8); LYMPHOCYTES % (AUTO) 12.4 % (20.0-44.0); MEAN CORPUSCULAR HGB CONC 32 g/dl (31.0-36.0); MEAN CORPUSCULAR VOLUME 103 fL (82-100); MONOCYTES # (AUTO) 0.6 /CMM (0.1-1.30); MONOCYTES % (AUTO) 9.1 % (2.0-12.0); NEUTROPHILS # (AUTO) 5.4 /CMM (1.8-8.9); NEUTROPHILS % (AUTO) 76.5 % (43.0-81.0); PLATELET COUNT (AUTO) 164 /CMM (150-450); RED BLOOD CELL COUNT(AUTO) 2.44 MIL/uL (4.0-5.2)
--- NOTE | 2020-08-23 07:02 | NUR ---
RN OPENING NOTES RECEIVED PT AWAKE IN BED AT THIS TIME. AOX3-4, PT ABLE TO TO MAKE NEEDS KNOWN. PT NOTED ON OXYGEN 2LPM VIA NC. PT NOTED ON EXTERNAL ADULT HIGH SCHOOL INSTRUCTOR READING SR 66. NO SOB NOTED, NO SIGN OF ANY ACUTE DISTRESS NOTED, NO C/O PAIN AT THIS TIME. IV ACCESS NOTED IN RIGHT HAND G#20, INTACT, PATENT AND FLUSHING WELL. LEFT AV SHUNT NOTED, BRUIT AUSCULTATED AND THRILL FELT. ASPIRATIONS AND SAFETY PRECAUTIONS IN PLACE AND MAINTAINED AT ALL TIMES. BED IN LOWEST LOCKED POSITION, SIDE RAILS UP, HOB ELEVATED, TABLE AND CALL LIGHT WITHIN REACH. WILL CONTINUE TO MONITOR
[2020-08-23 08:31] VITALS: BP 149/63
[2020-08-23] MEDS: CLOPIDOGREL BISULFATE 75 MG TABLET PO SCH (09:50)
[2020-08-23] MEDS: ATORVASTATIN 40 MG TABLET PO SCH (09:50)
[2020-08-23] MEDS: DOCUSATE SODIUM 100 MG CAPSULE PO SCH (09:51)
[2020-08-23] MEDS: FUROSEMIDE 40 MG TABLET PO SCH (09:51)
[2020-08-23] MEDS: LOSARTAN POTASSIUM 50 MG TABLET PO SCH (09:52)
[2020-08-23] MEDS: ASPIRIN EC 81 MG TABLET.DR PO SCH (09:52)
[2020-08-23] MEDS: ISOSORBIDE MONONITRATE (30MG) 30 MG TAB.SR.24H PO SCH (09:52)
[2020-08-23] MEDS: CARVEDILOL 6.25 MG TABLET PO SCH ×2 (09:52→21:00)
[2020-08-23] MEDS: glipiZIDE 5 MG TABLET PO SCH ×2 (09:52→16:22)
[2020-08-23] MEDS: Z GUARD REMEDY 2 OZ OINT TP SCH (09:53)
[2020-08-23] MEDS ORDERED: LOSA50TA3 PO (14:33)
[2020-08-23] MEDS ORDERED: CARV6.252 PO (14:33)
[2020-08-23 16:15] VITALS: BP 122/72
--- NOTE | 2020-08-23 16:39 | NUR ---
PT C/O OF NON RADIATING CHEST PAIN OF 5/1O. PT NOTED MOANING, VS BP 122/72, HR 60, RR 18, T 98.0, SPO2 95%. PT ON OXYGEN VIA NC. NITROSTAT 0.4MG X 3TABLETS Q5MIN ADMINISTERED, PT REMAINS RELAX WITH NO C/O PAIN, WILL CONTINUE TO MONITOR
--- NOTE | 2020-08-23 17:24 | NUR ---
PT BLOOD SUGAR OF 51, ORANGE JUICE GIVEN PER ORDER. RECHECKED BLOOD SUGAR IS 102 AT THIS TIME. WILL CONTINUE WITH PLAN OF CARE
--- NOTE | 2020-08-23 18:41 | NUR ---
RN CLOSING NOTES PT AWAKE IN BED AT THIS TIME. PT REMAINED STABLE THROUGHOUT SHIFT. ALL CARE, NEED, MEDICATIONS AND TREATMENT ADMINISTERED ANTICIPATED PER ORDER. PT KEPT CLEAN AND DRY. STERNAL WOUND CARE TREATMENT PROVIDED. ASPIRATION, RESPIRATION AND SAFETY PRECAUTION IN PLACE AND MAINTAINED AT ALL TIMES. BED IN LOWEST LOCKED POSITION, HOB ELEVATED, SIDE RAILS UP X 2, CALL LIGHT AND TABLE WITHIN REACH. WILL ENDORSE TO JUDICIAL ASSISTANT NURSE FOR MARBIN.
--- NOTE | 2020-08-23 19:02 | NUR ---
NO BOWEL MOVEMENT DOCUMENTED SINCE 08/20/20. DR REID MADE AWARE. RECEIVED ORDERS FOR MIRALAX DAILY PRN. ORDERS CARRIED OUT. WILL CONTINUE WITH PLAN OF CARE
--- NOTE | 2020-08-23 19:09 | NUR ---
MIRALAX 17GM PO DAILY PRN ADMINISTERED AT THIS TIME PER ORDER D/T NO BM SINCE 08/20, WILL CONTINUE TO MONITOR
--- NOTE | 2020-08-23 19:30 | NUR ---
TELERN AWAKE FINISHING LATE DINNER. NO SOB. DENIES DISCOMFORTS FOR NOW. LIMITED OMANI. REMINDED TO CALL STAFF FOR ANY ASSISTANCE OR DISCOMFORTS CALL LIGHT USE REVIEWED WITH PATIENT, APPEARS TO UNDERSTAND. SR ON THE MONITOR, CLOSELY WATCHED.
[2020-08-23] MEDS ORDERED: POLYETHYLENE GLYCOL 3350 17 GM POWD.PACK PO PRN (20:00)
--- NOTE | 2020-08-23 20:00 | NUR ---
TELERN BP 98/42, HEART RATE OF 65 SR ON THE MONITOR
[2020-08-23 20:27] VITALS: BP 98/42
--- NOTE | 2020-08-23 21:26 | NUR ---
TELERN RECHECKED BP 93/52, HEART RATE OF 75 SR ON THE MONITOR. DENIES, DISCOMFORTS. COREG HELD FOR NOW. CLOSELY WATCHED.
--- NOTE | 2020-08-23 22:50 | NUR ---
TELERN BS 99. SNACKS ENCOURAGED. REMAINS SR ON THE MONITOR.
[2020-08-24 00:20] VITALS: BP 93/50
--- NOTE | 2020-08-24 04:00 | NUR ---
TELERN BP 102/43 HEART RATE 65 OF THIS TIME. DENIES DIZZINESS, NO SOB, NO DISCOMFORTS.
[2020-08-24 04:11] VITALS: BP 102/43
--- NOTE | 2020-08-24 05:23 | NUR ---
TELERN WEIGHT 140.9 LBS, BED SCALE.
--- NOTE | 2020-08-24 05:39 | NUR ---
TELERN BP RECHECKED THIS TIME. REMAINS SR.
--- NOTE | 2020-08-24 06:37 | NUR ---
CHASE ARMENTA 96. EAGER TO GO HOME, AWAITING FOR [facility] DELIVERY TODAY.
[2020-08-24] MEDS: BLOOD SUGAR DIAGNOSTIC 1 EACH STRIP IN SCH ×2 (06:51→12:02)
--- NOTE | 2020-08-24 07:55 | NUR ---
TELE/RN OPENING NOTES RECEIVED PATIENT ON BED AWAKE ALERT AND ORIENTED X4. PATIENT IS ON 2L OXYGEN SATURATING WELL. PATIENT IN NO APPARENT RESPIRATORY DISTRESS NOTED. NO COMPLAINED OF PAIN NOTED AT THIS TIME. TELE MONITOR READING SINUS RHYTHM 67 BPM. WILL CONTINUE TO MONITOR.
[2020-08-24 08:00] VITALS: BP 103/59
[2020-08-24] MEDS: ISOSORBIDE MONONITRATE (30MG) 30 MG TAB.SR.24H PO SCH (08:47)
[2020-08-24 08:48] VITALS: BP 103/59
[2020-08-24] MEDS: ASPIRIN EC 81 MG TABLET.DR PO SCH (08:48)
[2020-08-24] MEDS: CARVEDILOL 6.25 MG TABLET PO SCH (08:48)
[2020-08-24] MEDS: FUROSEMIDE 40 MG TABLET PO SCH (08:48)
[2020-08-24] MEDS: LOSARTAN POTASSIUM 50 MG TABLET PO SCH (08:48)
[2020-08-24] MEDS: DOCUSATE SODIUM 100 MG CAPSULE PO SCH (08:48)
[2020-08-24] MEDS: CLOPIDOGREL BISULFATE 75 MG TABLET PO SCH (08:48)
[2020-08-24] MEDS: ATORVASTATIN 40 MG TABLET PO SCH (08:49)
[2020-08-24] MEDS: glipiZIDE 5 MG TABLET PO SCH ×2 (08:49→16:08)
[2020-08-24] MEDS: Z GUARD REMEDY 2 OZ OINT TP SCH (08:55)
--- NOTE | 2020-08-24 10:13 | NUR ---
TELE/RN NOTES BP 103/59 P 70 COREG 50 MG 1 TAB PO AND COZAAR 50MG 1 TAB PO WAS NOT ADMINISTERED. WILL CONTINUE TO MONITOR.
[2020-08-24] MEDS: INSULIN REGULAR, HUMAN 100 UNIT/ML 3 ML VIAL SQ PRN (12:01)
[2020-08-24] MEDS: ACETAMINOPHEN 325 MG TABLET PO PRN (16:08)
--- NOTE | 2020-08-24 16:40 | NUR ---
RN NOTES PATIENT ALERT AND ORIENTED X3. PATIENT IN ROOM AIR SATURATION 95%. PATIENT IN NO APPARENT RESPIRATORY DISTRESS NOTED. NO COMPLAINED OF PAIN NOTED. DISCHARGED INSTRUCTIONS WAS GIVEN TO LANDON GRAYSON) AND LANDON VERBALIZED UNDERSTANDING. PATIENT LEFT THE HOSPITAL IN MEDICALLY STABLE CONDITION TECHNOLOGY EDUCATION INSTRUCTOR BY LANDON GRAYSON) VIA PRIVATE CAR. [id number] P 65 TEMP 97.9.
== END 2020-08-24 16:30 | disposition home or self-care (01) | DRG 280 ==
LOC: ER 08:19 → TELE 13:19
PROVIDERS: ADMIT Student in an Organized Health Care Education/Training Program; ATTEND Nurse Practitioner Acute Care
PROC: 5A1D70Z Performance of Urinary Filtration, Intermittent, Less than 6 Hours Per Day (ICD-10-PCS; principal; 2020-08-20)
DX: I21.4 Non-ST elevation (NSTEMI) myocardial infarction (principal); N18.6 End stage renal disease; I50.43 Acute on chronic combined systolic (congestive) and diastolic (congestive) heart failure; I13.2 Hypertensive heart and chronic kidney disease with heart failure and with stage 5 chronic kidney disease, or end stage renal disease; E87.2 Acidosis; S21.109A Unspecified open wound of unspecified front wall of thorax without penetration into thoracic cavity, initial encounter; J90 Pleural effusion, not elsewhere classified; E11.22 Type 2 diabetes mellitus with diabetic chronic kidney disease; Z99.2 Dependence on renal dialysis; E78.5 Hyperlipidemia, unspecified; I25.10 Atherosclerotic heart disease of native coronary artery without angina pectoris; E03.9 Hypothyroidism, unspecified; K21.9 Gastro-esophageal reflux disease without esophagitis; D64.9 Anemia, unspecified; Z20.822 Contact with and (suspected) exposure to COVID-19; D63.1 Anemia in chronic kidney disease; Z79.02 Long term (current) use of antithrombotics/antiplatelets; Z79.899 Other long term (current) drug therapy; Z95.1 Presence of aortocoronary bypass graft; Z82.49 Family history of ischemic heart disease and other diseases of the circulatory system; E21.3 Hyperparathyroidism, unspecified; Z79.82 Long term (current) use of aspirin; Z79.84 Long term (current) use of oral hypoglycemic drugs; N25.0 Renal osteodystrophy; X58.XXXA Exposure to other specified factors, initial encounter; Y92.9 Unspecified place or not applicable; E78.00 Pure hypercholesterolemia, unspecified
CPT/HCPCS: 36415; 71045-TC; 75574; 80048-TC; 80053-TC; 80061-TC; 82728-TC; 82962-TC; 83540-TC; 83735-TC; 84100-TC; 84439-TC; 84443-TC; 84484-TC; 85025-TC; 86706; 87081-TC; 87340; 90935-TC; 93307-TC; 97116-TC; 97530-TC; C9803; G0378; J1815; J2270; J2405; J3490; J7050; Q9967; U0003